=== PATIENT | male | born 1955 | race Caucasian/White ===

== ENCOUNTER 2019-11-04 19:11 | Inpatient (IN) | payer MEDICAID, OTHER, SELFPAY ==
[2019-11-04] MEDS ORDERED: LORazepam 2 MG/ML VIAL ONE ×2 (19:55→21:28)
[2019-11-04] MEDS ORDERED: ACETAMINOPHEN 650MG/RECT SUPP PR ONE (19:56)
[2019-11-04] MEDS ORDERED: NA CHLORIDE 0.9% 1,000 ML ONE (19:57)
--- NOTE | 2019-11-04 20:15 | RAD REPORT ---
EXAM DESCRIPTION: RAD - Chest Single View - 11/04/2019 7:59 pm CLINICAL HISTORY: FEVER Chest pain. COMPARISON: No comparisons FINDINGS: Portable technique limits examination quality. Prominent emphysema is seen. Mild bilateral interstitial lung opacities could indicate interstitial p neumonitis/ bronchitis. The heart is normal in size. No displaced fractures.
[2019-11-04 20:24] LABS: Absolute Lymphocytes (CBC) 0.7 K/uL (0.7-4.9); Basophils % 0.6 % (0-1.3); Hematocrit 33.9 % (39.6-49.0); Lymphocytes % 6.2 % (15.3-44.8); MPV 7.9 fL (7.6-11.3); RBC Red Blood Cell Count 3.31 M/uL (4.33-5.43)
[2019-11-04 20:25] LABS: Protime INR 1.03
[2019-11-04 20:39] LABS: ALT/SGPT 26 U/L (12-78); AST/SGOT 24 U/L (15-37); Albumin 2.9 g/dL (3.4-5.0); Alkaline Phosphatase 125 U/L (45-117); Amylase 40 U/L (25-115); BUN Blood Urea Nitrogen 14 mg/dL (7-18); Bicarbonate 31 mmol/L (21-32); Bilirubin Direct 0.4 mg/dL (0-0.2); Bilirubin Total 1.2 mg/dL (0.2-1.0); CKMB Creatine Kinase MB < 1.0 ng/mL (0.3-3.6); Creatine Phosphokinase 53 U/L (39-308); Glucose Level 105 mg/dL (74-106); Lipase 150 U/L (73-393); Potassium 3.7 mmol/L (3.5-5.1); Protein, Total 7.6 g/dL (6.4-8.2); Sodium Level 146 mmol/L (136-145); Troponin (Emerg Dept Use Only) < 0.02 ng/mL (0.0-0.045)
[2019-11-04 21:10] LABS: Urine Blood NEGATIVE (NEG); Urine Glucose NEGATIVE (NEG); Urine Protein 1+ (NEG); Urine pH 7.5 (5.0-7.0)
[2019-11-04] MEDS ORDERED: AZITHROMYCIN 500 MG INJ IVPB ONE (21:29)
[2019-11-04] MEDS ORDERED: CEFTRIAXONE/SWI 1gm 1 GM/10 ML SYR ONE (21:29)
[2019-11-04] MEDS ORDERED: NA CHLORIDE 0.9% 250 ML ONE (21:29)
--- NOTE | 2019-11-04 21:30 | ER ---
Nurse's Notes [facility] Name: Rober Sheridan Age: 63 yrs Sex: Male : 1955 Arrival Date: 11/04/2019 Time: 19:13 Bed 6 Private MD: Diagnosis: Pneumonia, unspecified organism;Alcohol dependence with withdrawal delirium Presentation: 11/03 19:18 Chief complaint: EMS states: came from [facility] complaining of fever T 104.6, we rr5 checked axilla T 102 F. patient was admitted in the facility for alcohol withdrawal, patient having tremors and pulling out his lines 2 point restraint applied, Ativan 2 mg/IV and Phenergan 12.5 mg/IV given. NS 1 liter given. Coronavirus screen: Client denies travel out of the [place] in the last 14 days. fever, shaking with chills, Client presents with at least one sign or symptom that may indicate coronavirus-19. Standard/surgical mask placed on the client. Provider contacted for isolation considerations. Ebola Screen: Patient negative for fever greater than or equal to 101.5 degrees Fahrenheit, and additional compatible Ebola Virus Disease symptoms Patient denies exposure to infectious person. Patient denies travel to an Ebola-affected area in the 21 days before illness onset. Initial Sepsis Screen: Does the patient meet any 2 criteria? RR > 20 per min. Temp <36.0*C (96.8*F)) or > 38.3*C (100.9*F). HR > 90 bpm. Does the patient have a suspected source of infection? Yes: Productive cough/pneumonia. Risk Assessment: Do you want to hurt yourself or someone else? Unable to obtain. Onset of symptoms was November 04, 2019. 19:18 Method Of Arrival: EMS: [facility] rr5 19:18 Acuity: PETER 2 rr5 Triage Assessment: 19:20 General: Behavior is uncooperative. rr5 Historical: - Allergies: 19:35 Tetanus Vaccines \T\ Toxoid; rr5 - PMHx: 19:27 Hypertension; Anxiety; hypokalemia; insomnia; nicotine dependence; acute pain due to rr5 trauma; iron deficiency; UTI; GERD; conjunctivitis; muscle weakness; - Immunization history:: Adult Immunizations unknown. - Social history:: Smoking status: Patient reports the use of cigarette tobacco products, Patient uses nicotine dependence. Screenin:20 Abuse screen: Denies threats or abuse. Denies injuries from another. Nutritional rr5 screening: No deficits noted. Tuberculosis screening: No symptoms or risk factors identified. Fall Risk Secondary diagnosis (15 points) impaired mobility, IV access (20 points). Mental Status- Overestimates/Forgets Limitations (15 pts.). Total Karimi Fall Scale indicates High Risk Score (45 or more points). Fall prevention measures have been instituted. Side Rails Up X 2 Placed Close to Nursing Station Frequent Obs/Assessments Occuring As available patient and family educated on Fall Prevention Program and Strategies. Assessment: 19:20 General: Appears in no apparent distress. ill, caregiver report fever and chills. Pain: rr5 Unable to use pain scale. Patient appears confused, to be grimacing. Neuro: Level of Consciousness is awake, Oriented to none tremors noted. Cardiovascular: Capillary refill < 3 seconds Patient's skin is warm and dry. Respiratory: Airway is patent Respiratory effort is even, unlabored, Respiratory pattern is tachypnea. GI: No signs and/or symptoms were reported involving the gastrointestinal system. : No signs and/or symptoms were reported regarding the genitourinary system. EENT: Eyes conjunctivitis right eye. Derm: Skin is fragile, is thin, Skin temperature is warm. Musculoskeletal: Capillary refill < 3 seconds. 20:36 Reassessment: spoke to rudy from [facility] patient chief complaint of fever T rr5 104.3 F chills and shaking started today. he was on quaratine for 2 weeks today is his first day release form quarantine. he was tested covid negative. patient is admitted in [facility] because of fall, shakiness and alcohol withdrawal. baseline A\T\O x1. 21:10 Reassessment: Patient appears in no apparent distress at this time. still having rr5 tremors, ED provider informed with order made and carried out. 21:37 Reassessment: daughter kayce [phone] informed, that the patient is for admission. rr5 23:06 Reassessment: Patient appears in no apparent distress at this time. No changes from rr5 previously documented assessment. 11/04 00:15 Reassessment: hospitalist with [employer] order to do blood work up at 0600H and to rr5 start NS 100 ml/Hr. 00:30 Reassessment: Patient appears in no apparent distress at this time. awaiting for covid rr5 result. diaper changed positive urine. 01:30 Reassessment: Patient appears in no apparent distress at this time. No changes from rr5 previously documented assessment. 02:14 Reassessment: covid negative for ICU admission. rr5 Vital Signs: 11/03 19:18 BP 166 / 106; Pulse 125; Resp 24; Temp 102.6; Pulse Ox 96% ; rr5 19:28 Weight 60 kg; rr5 20:53 BP 152 / 115; Pulse 120; Resp 22; Pulse Ox 97% ; rr5 21:33 BP 139 / 74; Pulse 128; Resp 24; Temp 100.8; Pulse Ox 97% ; rr5 23:07 BP 134 / 84; Pulse 120; Resp 22 S; Pulse Ox 98% on R/A; jd3 / 00:10 BP 123 / 91; Pulse 114; Resp 25; Temp 99.8; Pulse Ox 97% ; rr5 01:28 BP 147 / 94; Pulse 110; Resp 28; Temp 98.4; Pulse Ox 98% ; rr5 02:15 BP 151 / 95; Pulse 116; Resp 28; Pulse Ox 99% on R/A; rr5 03:15 BP 139 / 103; Pulse 111; Resp 24; Temp 98.9; Pulse Ox 99% ; rr5 ED Course: 11/03 19:13 Patient arrived in ED. am2 19:17 Brennon Rosa, RN is Primary Nurse. rr5 19:20 Maintain EMS IV. Dressing intact. Good blood return noted. Site clean \T\ dry. Gauge \T\ rr 5 site: G18 left AC. 19:23 Triage completed. rr5 19:30 Patient has correct armband on for positive identification. Placed in gown. Bed in low rr5 position. Call light in reach. Side rails up X2. dethistler operator on. Pulse ox on. NIBP on. 19:30 Arm band placed on right wrist. rr5 19:36 Aaron Brown MD is Attending Physician. tw4 19:50 EKG done, by ED staff, reviewed by Aaron Brown MD. rr5 20:00 Inserted saline lock: 20 gauge in right hand, using aseptic technique. rr5 20:00 First set of blood cultures drawn by me. rr5 20:10 Flu and/or RSV swab sent to lab. Strep swab sent to lab. covid. rr5 20:20 Second set of blood cultures drawn by me. rr5 20:25 Urine collected: straight cath specimen, clear. rr5 20:26 COVID-19 Sent. rr5 20:26 Flu Sent. rr5 21:28 Jimbo Lewis PA is Hospitalizing Provider. tw4 11/04 01:29 No provider procedures requiring assistance completed. Patient admitted, IV remains in rr5 place. intact, No redness/swelling at site. Restraints: 11/03 19:20 Non-Violent Restraint: Order obtained. Initiated on November 04, 2019 at 19:20 Unable to rr5 provide Restraint education. disoriented. Actions/Behavior observed: Confused/disoriented, has impaired decision making, repeated attempts to get up from bed/chair w/o assistance, has decreased level of consciousness, unable to follow instructions, repeated attempts to remove/tamper lines/tubes/IV med devices \T\ wound dressing, Alternative interventions: Ineffective. Clinical justification for use: line protection, patient safety, Mental status: confused, Cognition: Unable to assess. poor judgement, poor safety awareness, impulsive, poor attention/concentration, unable to follow commands, Circulation: Within defined parameters (based on Cardiovascular assessment) Skin integrity: Within defined parameters (based on Integumentary assessment) Signs of injury related to restraint: No injuries noted. Restraint status: Soft wrist restraint (Right) Continued. Soft wrist restraint (Left) Continued. 21:20 Non-Violent Restraint: Actions/Behavior observed: Confused/disoriented, has difficulty rr5 remembering/follow instructions, has impaired decision making, has decreased level of consciousness, unable to follow instructions, repeated attempts to remove/tamper lines/tubes/IV med devices \T\ wound dressing, Less restrictive alternatives attempted: decrease environmental stimuli, reoriented to location, repositioned, Alternative interventions: Ineffective. Clinical justification for use: line protection, patient safety, Mental status: confused, Cognition: Unable to assess. poor judgement, poor safety awareness, impulsive, poor attention/concentration, unable to follow commands, Circulation: Within defined parameters (based on Cardiovascular assessment) Skin integrity: Within defined parameters (based on Integumentary assessment) Signs of injury related to restraint: No injuries noted. Restraint status: Soft wrist restraint (Right) Continued. Soft wrist restraint (Left) Continued. 23:20 Non-Violent Restraint: Actions/Behavior observed: Confused/disoriented, has difficulty rr5 remembering/follow instructions, has impaired decision making, repeated attempts to get up from bed/chair w/o assistance, has decreased level of consciousness, unable to follow instructions, repeated attempts to remove/tamper lines/tubes/IV med devices \T\ wound dressing, Clinical justification for use: line protection, patient safety, Mental status: confused, Cognition: Unable to assess. poor judgement, poor safety awareness, impulsive, poor attention/concentration, unable to follow commands, Circulation: Within defined parameters (based on Cardiovascular assessment) Skin integrity: Within defined parameters (based on Integumentary assessment) Signs of injury related to restraint: No injuries noted. Range of Motion (ROM): performed. Restraint status: Soft wrist restraint (Right) Soft wrist restraint (Left) Continued. 11/04 01:00 Non-Violent Restraint: Actions/Behavior observed: Confused/disoriented, has difficulty rr5 remembering/follow instructions, has impaired decision making, repeated attempts to get up from bed/chair w/o assistance, has decreased level of consciousness, unable to follow instructions, repeated attempts to remove/tamper lines/tubes/IV med devices \T\ wound dressing, Clinical justification for use: line protection, patient safety, Mental status: confused, Cognition: Unable to assess. poor judgement, poor safety awareness, impulsive, poor attention/concentration, unable to follow commands, Circulation: Within defined parameters (based on Cardiovascular assessment) Skin integrity: Within defined parameters (based on Integumentary assessment) Signs of injury related to restraint: No injuries noted. Range of Motion (ROM): performed. Elimination/Hygiene: perineal care performed, diapers changed. Administered Medications: 11/03 20:00 Drug: NS 0.9% (30 ml/kg) 30 ml/kg Route: IV; Rate: bolus; Site: right hand; rr5 21:30 Follow up: Response: No adverse reaction; IV Status: Completed infusion; IV Intake: rr5 800ml 21:30 Follow up: 1 liter of NS given by EMS rr5 20:05 Drug: Ativan 1 mg Route: IVP; Site: right hand; rr5 21:00 Follow up: Response: No adverse reaction rr5 20:25 Drug: Tylenol Suppository 650 mg Route: IN; rr5 21:25 Follow up: Response: No adverse reaction; Temperature is decreased rr5 21:00 Drug: Rocephin 1 grams - ((cefTRIAXone) 1 grams, NS 0.9% 50 ml) Route: IVPB; Infused rr5 Over: 30 mins; Site: right hand; 21:30 Follow up: Response: No adverse reaction; IV Status: Completed infusion; IV Intake: [id number] 21:15 Drug: Ativan 1 mg Route: IVP; Site: right hand; rr5 22:15 Follow up: Response: No adverse reaction rr5 21:30 Dru mg of (AZITHromycin 500 mg, NS 0.9% 250 ml) Route: IVPB; Infused Over: 1 hrs; rr5 Site: right hand; 22:36 Follow up: Response: No adverse reaction; IV Status: Completed infusion; IV Intake: rr5 250ml 21:52 Drug: Thiamine 100 mg Route: IV; Rate: bolus; Site: right hand; rr5 22:00 Follow up: Response: No adverse reaction; IV Status: Completed infusion rr5 Intake: 21:30 IV: 50ml; Total: 50ml. rr5 21:30 IV: 800ml; Total: 850ml. rr5 22:36 IV: 250ml; Total: 1100ml. rr5 11/04 00:30 PO: 0ml; Total: 1100ml. rr5 Output: 00:30 Other: 1 (Diapers) ; Total: 0ml. rr5 Outcome: 11/03 21:29 Decision to Hospitalize by Provider. tw4 11/04 03:23 Admitted to ICU accompanied by nurse, via stretcher, room bed 10-, on monitor, with rr5 chart, Report called to renuka Condition: stable Instructed on unable to instruct admission 03:26 Patient left the ED. rr5 Signatures: Nicol Rivero Jonathon, RN RN jd3 Aaron Brown MD MD tw4 Brennon Rosa RN RN rr5 Corrections: (The following items were deleted from the chart) 00:31 11/03 23:06 Reassessment: No changes from previously documented assessment. Patient rr5 and/or family updated on plan of care and expected duration. Pain level reassessed. rosemarie
--- NOTE | 2019-11-04 21:30 | EDPHYS ---
Physician Documentation [facility] Name: Rober Sheridan Age: 63 yrs Sex: Male : 1955 Arrival Date: 11/04/2019 Time: 19:13 Bed 6 Private MD: ED Physician Aaron Brown HPI: 11/03 23:15 This 63 yrs old Male presents to ER via EMS with complaints of Fever. tw4 23:15 The patient reports fever, not measured (subjective). Onset: The symptoms/episode tw4 began/occurred today. Modifying factors: there are no obvious modifying factors. Associated signs and symptoms: Pertinent negatives:. Severity of symptoms: At their worst the symptoms were moderate in the emergency department the symptoms are unchanged. The patient has not experienced similar symptoms in the past. Historical: - Allergies: 19:35 Tetanus Vaccines \T\ Toxoid; rr5 - PMHx: 19:27 Hypertension; Anxiety; hypokalemia; insomnia; nicotine dependence; acute pain due to rr5 trauma; iron deficiency; UTI; GERD; conjunctivitis; muscle weakness; - Immunization history:: Adult Immunizations unknown. - Social history:: Smoking status: Patient reports the use of cigarette tobacco products, Patient uses nicotine dependence. ROS: 23:15 Cardiovascular: Negative for chest pain, palpitations, and edema, Respiratory: Negative tw4 for shortness of breath, cough, wheezing, and pleuritic chest pain, Abdomen/GI: Negative for abdominal pain, nausea, vomiting, diarrhea, and constipation, Back: Negative for injury and pain, MS/Extremity: Negative for injury and deformity, Skin: Negative for injury, rash, and discoloration, Neuro: Negative for headache, weakness, numbness, tingling, and seizure. 23:15 Constitutional: Positive for fever. Exam: 23:15 Head/Face: Normocephalic, atraumatic. Chest/axilla: Normal chest wall appearance and tw4 motion. Nontender with no deformity. No lesions are appreciated. Cardiovascular: Regular rate and rhythm with a normal S1 and S2. No gallops, murmurs, or rubs. Normal PMI, no JVD. No pulse deficits. Respiratory: Lungs have equal breath sounds bilaterally, clear to auscultation and percussion. No rales, rhonchi or wheezes noted. No increased work of breathing, no retractions or nasal flaring. Abdomen/GI: Soft, non-tender, with normal bowel sounds. No distension or tympany. No guarding or rebound. No evidence of tenderness throughout. Back: No spinal tenderness. No costovertebral tenderness. Full range of motion. MS/ Extremity: Pulses equal, no cyanosis. Neurovascular intact. Full, normal range of motion. 23:15 Constitutional: The patient appears agitated, in obvious distress, moderately distressed. 23:15 Neuro: Orientation: unable to test, medical condition, Mentation: is normal, Motor: tremors. Vital Signs: 19:18 BP 166 / 106; Pulse 125; Resp 24; Temp 102.6; Pulse Ox 96% ; rr5 19:28 Weight 60 kg; rr5 20:53 BP 152 / 115; Pulse 120; Resp 22; Pulse Ox 97% ; rr5 21:33 BP 139 / 74; Pulse 128; Resp 24; Temp 100.8; Pulse Ox 97% ; rr5 23:07 BP 134 / 84; Pulse 120; Resp 22 S; Pulse Ox 98% on R/A; jd3 11/04 00:10 BP 123 / 91; Pulse 114; Resp 25; Temp 99.8; Pulse Ox 97% ; rr5 01:28 BP 147 / 94; Pulse 110; Resp 28; Temp 98.4; Pulse Ox 98% ; rr5 02:15 BP 151 / 95; Pulse 116; Resp 28; Pulse Ox 99% on R/A; rr5 03:15 BP 139 / 103; Pulse 111; Resp 24; Temp 98.9; Pulse Ox 99% ; rr5 MDM: 11/03 19:48 Patient medically screened. tw4 23:19 Differential diagnosis: viral Infection, bacterial infection, URI. Data reviewed: vital tw4 signs, nurses notes, EMS record. Data interpreted: Pulse oximetry: Interpretation: normal. Counseling: I had a detailed discussion with the patient and/or guardian regarding: the historical points, exam findings, and any diagnostic results supporting the discharge/admit diagnosis, the presence of at least one elevated blood pressure reading (>120/80) during this emergency department visit, lab results. Special discussion: I discussed with the patient/guardian in detail that at this point there is no indication for admission to the hospital. It is understood, however, that if the symptoms persist or worsen the patient needs to return immediately for re-evaluation. 11/03 19:28 Order name: Amylase, Serum [facility] 11/03 19:28 Order name: Basic Metabolic Panel [facility] 11/03 19:28 Order name: Blood Culture Adult (2) [facility] 11/03 19:28 Order name: CBC with Diff [facility] 11/03 19:28 Order name: Ckmb [facility] 11/03 19:28 Order name: CPK [facility] 11/03 19:28 Order name: Lactate [facility] 11/03 19:28 Order name: LFT's [facility] 11/03 19:28 Order name: Lipase [facility] 11/03 19:28 Order name: Procalcitonin; Complete Time: 21:23 rr 11/03 21:24 Interpretation: Within normal limits: Procalcitonin 0.10. [facility] 11/03 19:28 Order name: Protime (+inr) [facility] 11/03 19:28 Order name: Ptt, Activated [facility] 11/03 19:28 Order name: Troponin (emerg Dept Use Only) [facility] 11/03 19:28 Order name: Urine Microscopic Only [facility] 11/03 19:47 Order name: COVID-19 [facility] 11/03 19:47 Order name: Flu [facility] 11/03 19:47 Order name: Strep [facility] 11/03 20:24 Order name: Glucose, Ancillary Testing; Complete Time: 20:28 EDMS 11/03 20:24 Order name: Urine Dipstick--Ancillary (enter results); Complete Time: 21:23 tt3 11/03 21:23 Interpretation: Normal except: UPH 7.5; U NIT POSITIVE; UPROT 1+. 4 11/03 20:31 Order name: CBC with Automated Diff [facility] 11/03 21:23 Interpretation: Normal except: WBC 11.1; RBC 3.31; HGB 11.2; HCT 33.9; MCV 102.4; LYM% tw4 6.2; AMANDA% 87.3; NEUT A 9.7. 11/03 20:31 Order name: Protime (+INR); Complete Time: 21:23 EDMS 11/03 21:24 Interpretation: Within normal limits: PT 12.1. 4 11/03 20:31 Order name: PTT, Activated Partial Thromb; Complete Time: 21:23 EDMS 11/03 21:24 Interpretation: Within normal limits: PTT 31.5. 11/03 20:33 Order name: Lactate; Complete Time: 21:23 PR 11/03 21:24 Interpretation: Within normal limits: LAC 1.7. 11/03 20:40 Order name: Basic Metabolic Panel; Complete Time: 21:23 EDPR 11/03 21:23 Interpretation: Normal except: NA 146. 11/03 20:40 Order name: Liver (Hepatic) Function; Complete Time: 21:23 EDMS 11/03 21:24 Interpretation: Normal except: ALK 125; BILIT 1.2; BILID 0.4; ALB 2.9; GLOB 4.7; A/G tw4 0.6. 11/03 20:40 Order name: Creatine Phosphokinase; Complete Time: 21:23 PR 11/03 21:24 Interpretation: CPK 53. [facility] 11/03 20:40 Order name: CKMB Creatine Kinase MB; Complete Time: 21:23 PR 11/03 21:25 Interpretation: Within normal limits: CKMB < 1.0. 11/03 20:40 Order name: Troponin (Emerg Dept Use Only); Complete Time: 21:23 PR 11/03 21:25 Interpretation: Within normal limits: TROPED < 0.02. 11/03 20:40 Order name: Amylase; Complete Time: 21:23 [facility] 11/03 21:25 Interpretation: Within normal limits: SAMPSON 40. 11/03 20:40 Order name: Lipase; Complete Time: 21:23 [facility] 11/03 21:25 Interpretation: Within normal limits: LIP 150. 11/03 19:28 Order name: Chest Single View XRAY 11/03 19:28 Order name: Accucheck; Complete Time: 20:27 11/03 19:28 Order name: Cardiac monitoring; Complete Time: 20:27 11/03 19:28 Order name: EKG - Nurse/Tech; Complete Time: 20:27 11/03 19:28 Order name: IV Saline Lock - Large Bore; Complete Time: 20:[address] [facility] 11/03 19:28 Order name: Labs collected and sent; Complete Time: 20:[address] [facility] 11/03 19:28 Order name: O2 Per Protocol; Complete Time: 20:27 5 11/03 19:28 Order name: O2 Sat Monitoring; Complete Time: 20:26 5 11/03 19:28 Order name: Urine Dipstick-Ancillary (obtain specimen); Complete Time: 20:26 5 11/03 19:37 Order name: Restraint:Non-Violent; Complete Time: 20:26 5 11/03 19:47 Order name: Droplet/Contact Precautions; Complete Time: 20:28 tw4 11/03 19:47 Order name: Labs collected and sent; Complete Time: 20:28 tw4 11/03 19:47 Order name: Notify Health Dept [phone]/ ; Complete Time: 20:28 tw4 11/03 19:47 Order name: O2 Per Protocol; Complete Time: 20:28 [facility] 11/03 20:16 Order name: RAD; Complete Time: 20:28 EDPR 11/03 21:28 Order name: Throat Culture [facility] 11/03 21:50 Order name: Urine Culture [facility] 11/03 22:00 Order name: CBC Smear Scan [facility] 11/04 01:51 Order name: SARS-COV-2 RT PCR EDMS Administered Medications: 20:00 Drug: NS 0.9% (30 ml/kg) 30 ml/kg Route: IV; Rate: bolus; Site: right hand; rr5 21:30 Follow up: Response: No adverse reaction; IV Status: Completed infusion; IV Intake: rr5 800ml 21:30 Follow up: 1 liter of NS given by EMS rr5 20:05 Drug: Ativan 1 mg Route: IVP; Site: right hand; rr5 21:00 Follow up: Response: No adverse reaction rr5 20:25 Drug: Tylenol Suppository 650 mg Route: UT; rr5 21:25 Follow up: Response: No adverse reaction; Temperature is decreased rr5 21:00 Drug: Rocephin 1 grams - ((cefTRIAXone) 1 grams, NS 0.9% 50 ml) Route: IVPB; Infused rr5 Over: 30 mins; Site: right hand; 21:30 Follow up: Response: No adverse reaction; IV Status: Completed infusion; IV Intake: 51noce5 21:15 Drug: Ativan 1 mg Route: IVP; Site: right hand; rr5 22:15 Follow up: Response: No adverse reaction rr5 21:30 Dru mg of (AZITHromycin 500 mg, NS 0.9% 250 ml) Route: IVPB; Infused Over: 1 hrs; rr5 Site: right hand; 22:36 Follow up: Response: No adverse reaction; IV Status: Completed infusion; IV Intake: rr5 250ml 21:52 Drug: Thiamine 100 mg Route: IV; Rate: bolus; Site: right hand; rr5 22:00 Follow up: Response: No adverse reaction; IV Status: Completed infusion rr5 Disposition: 11/04/19 21:29 Hospitalization ordered by Jimbo Lewis for Inpatient Admission. Preliminary diagnosis are Pneumonia, unspecified organism, Alcohol dependence with withdrawal delirium. - Bed requested for Intensive Care Unit. - Status is Inpatient Admission. rr5 - Condition is Stable. - Problem is new. - Symptoms have improved. Signatures: Dispatcher [employer] Aaron Dickey MD MD tw4 Brennon Rosa RN RN rr5 Corrections: (The following items were deleted from the chart) 20:28 19:47 Document PUI# ordered. tw4 rr5 11/04 03:26 08 21:29 Hospitalization Ordered by Jimbo CEJA for Inpatient Admission. rr5 Preliminary diagnosis is Pneumonia, unspecified organism; Alcohol dependence with withdrawal delirium. Bed requested for Intensive Care Unit. Status is Inpatient Admission. Condition is Stable. Problem is new. Symptoms have improved. tw4
[2019-11-04 21:49] LABS: Urine Amorphous Sediment 1+ /HPF (NONE SEEN); Urine Bacteria 20-50 /HPF (NONE SEEN); Urine Culture Reflex Order REFLEXED; Urine RBC <5 /HPF (NONE SEEN)
[2019-11-04] MEDS ORDERED: NA CHLORIDE 0.9% 100 ML IV ONE (21:54)
[2019-11-04] MEDS ORDERED: THIAMINE 200 MG/2 ML INJ ONE (21:54)
[2019-11-04 22:00] LABS: Urine White Blood Cell Casts OK
[2019-11-04 22:01] LABS: Blood Morphology Comment NOT SEEN (NOT SEEN); Platelet Estimate ADEQ
--- NOTE | 2019-11-04 23:33 | P.HP ---
Certification for Inpatient With expected LOS: >2 Midnights Patient will require the following post-hospital care: Long-Term Practitioner: I am a practitioner with admitting privileges, knowledge of patient current condition, hospital course, and medical plan of care. Services: Services provided to patient in accordance with Admission requirements found in Title 42 Section 412.3 of the Code of Federal Regulations <Jimbo Lewis - Last Filed: 11/04/19 23:27> Patient History Date of Service: 11/04/19 Reason for admission: UTI/tremors/PNA History of Present Illness: 63-year-old male with a past medical history of COPD, nicotine dependence, alcohol abuse, muscle weakness, anxiety, hypertension, urinary tract infection and anxiety brought to the emergency room by EMS from a [facility]. Patient was in the [facility] isolation unit for 2 weeks as precautions. Patient was sent there for alcohol withdrawal and rehabilitation. Per staff patient has not had an alcoholic drink in greater than 3 weeks. Today patient was noted to have a fever chills and shaking. His baseline is alert x1. Currently the patient is at his baseline. In the emergency room patient is agitated. Has moderate tremors. His latest vitals are 152/115 blood pressure, pulse rate of 120, respiratory rate of 22 and pulse ox of 97%. Lab work shows nitrites in the UA with bacteria but no leukocyte esterase and no increase in white cell counts. Patient was being treated with oral antibiotic at [facility] facility. Rest of blood work shows a white cell count of 11.1, procalcitonin normal of 0.10 and a normal lactic acid of 1.7. There is no indication that the patient has been drinking alcohol in the past 3 weeks. At the [facility] care facility patient's medications included Ativan at 0.5 b.i.d., thiamine, folic acid, melatonin 5 mg at bedtime, metoprolol 25 mg b.i.d., nicotine patch of 14 mg and pantoprazole. Patient will be placed in the ICU and further evaluated. Home medications list reviewed: Yes - Past Medical/Surgical History Diabetic: No -: Hypertension -: Anxiety -: Hypokalemia-chronic -: Insomnia -: COPD -: Urinary tract infection -: Pneumonia -: Nicotine dependent -: Iron deficient -: Right eye conjunctivitis -: Muscle weakness Past Surgical History: Reviewed- Non-Contributory Psychosocial/ Personal History: Resident of [facility] - Social History Smoking Status: Former smoker Smoking therapy provided: Yes Patient receptive to therapy: Yes Alcohol use: No CD- Drugs: No Caffeine use: No Place of Residence: Group Home ([facility]) <Jimbo Lewis - Last Filed: 11/04/19 23:27> Date of Service: 11/11/19 <Sonido Rodriguez - Last Filed: 11/11/19 13:48> Allergies Tetanus Vaccines and Toxoid Allergy (Verified 11/04/19 23:49) Itching/Hives/Rash Home Medications: Dextran 70/Hypromellose [Artificial Tears Drops] 1 drops OP BID 11/05/19 Folic Acid 1 mg PO DAILY 11/05/19 Melatonin 5 mg PO BEDTIME 11/05/19 Metoprolol Tartrate [Lopressor*] 25 mg PO BID 11/05/19 Nicotine [Nicotine Patch] 1 each TD DAILY 11/05/19 Pantoprazole [Protonix Tab*] 40 mg PO DAILY 11/05/19 Polymyxin B Sulf/Trimethoprim [Polymyxin B-Tmp Eye Drops] 1 gtt OP Q6HR 11/05/19 Potassium Chloride 20 meq PO DAILY 11/05/19 Thiamine HCl 100 mg PO DAILY 11/05/19 Carbidopa/Levodopa 25-100 [Sinemet 25-100*] 1 tab PO TID #90 tab 11/07/19 Cefdinir [Cefdinir*] 300 mg PO BID #20 cap 11/07/19 Donepezil HCl [Aricept] 5 mg PO BID #60 tablet 11/07/19 Ensure Enlive 237 ml PO BID #60 can 11/07/19 Alejandro [Alejandro*] 1 pkt PO BID #60 powd.pack 11/07/19 chlordiazePOXIDE HCl [Librium*] 5 mg PO Q8HP #20 cap 11/07/19 Review of Systems is unable to be obtained <Jimbo Lewis - Last Filed: 11/04/19 23:27> Physical Examination - Vital Signs Temperature: 102.6 F Blood Pressure: 152/115 Pulse: 120 Respirations: 22 Pulse Ox (%): 97 (RA) - Physical Exam General: Alert, Oriented x1 (At baseline) HEENT: Atraumatic, Normocephalic, Other (Right eye conjunctivitis) Neck: Supple, Other (Trachea midline) Respiratory: Clear to auscultation bilaterally, Normal air movement Cardiovascular: No edema, Normal pulses Capillary refill: <2 Seconds Gastrointestinal: Normal bowel sounds, Soft and benign Musculoskeletal: No swelling, No contractures, No erythema Integumentary: No significant lesion, No tenderness/swelling, No erythema Neurological: Normal tone, Other (Tremors), Abnormal gait - Studies Laboratory Data (last 24 hrs) 11/04/19 20:00: PT 12.1, INR 1.03, APTT 31.5 11/04/19 20:00: WBC 11.1 H, Hgb 11.2 L, Hct 33.9 L, Plt Count 348 11/04/19 20:00: Sodium 146 H, Potassium 3.7, BUN 14, Creatinine 0.80, Glucose 105, Total Bilirubin 1.2 H, AST 24, ALT 26, Alkaline Phosphatase 125 H, Amylase 40, Lipase 150 Microbiology Data (last 24 hrs): 11/04/19 20:10 Nasopharnyx Influenza Type A Antigen Screen - Final 11/04/19 20:10 Nasopharnyx Influenza Type B Antigen Screen - Final 11/04/19 20:10 Throat Group A Streptococcus Rapid Screen - Final <Jimbo Lewis - Last Filed: 11/04/19 23:27> - Studies Laboratory Data (last 24 hrs) 11/04/19 20:00: PT 12.1, INR 1.03, APTT 31.5 11/04/19 20:00: WBC 11.1 H, Hgb 11.2 L, Hct 33.9 L, Plt Count 348 11/04/19 20:00: Sodium 146 H, Potassium 3.7, BUN 14, Creatinine 0.80, Glucose 105, Total Bilirubin 1.2 H, AST 24, ALT 26, Alkaline Phosphatase 125 H, Amylase 40, Lipase 150 Microbiology Data (last 24 hrs): 11/04/19 20:10 Nasopharnyx Influenza Type A Antigen Screen - Final 11/04/19 20:10 Nasopharnyx Influenza Type B Antigen Screen - Final 11/04/19 20:10 Throat Group A Streptococcus Rapid Screen - Final <Sonido Rodriguez - Last Filed: 11/11/19 13:48> Assessment and Plan - Plan Impression: Pneumonia: Urinary tract infection: History of alcohol abuse: Right eye conjunctivitis: COPD/emphysema: Nicotine dependence with withdrawal: Plan: Pneumonia: Chest x-ray with bilateral interstitial opacities. Will start empiric antibiotic coverage with IV Rocephin at 1 g Q 24 hr and IV azithromycin at 500 mg daily. Continue O2 support as necessary. Monitor vitals. Urinary tract infection: Patient was being treated as an outpatient for a urinary tract infection. UA shows positive nitrites, negative leukocyte esterase, negative white cells and positive bacteria. Will continue antibiotics as above. History of alcohol abuse: Patient has a history of alcohol abuse. He was at [facility] for rehabilitation. Per staff patient has not had an alcoholic drink in over 3 weeks. Today he had a sudden onset of fever chills and tremors. Will continue with [facility] protocol. Right eye conjunctivitis: Patient is being treated for right eye conjunctivitis. Will resume all medication once verified. COPD/emphysema: Patient has a history of heavy smoking. Chest x-ray also shows advanced emphysema. Continue O2 support as needed. And resume home medications once verified. Will start on IV methylprednisolone at 40 mg q.6 hr. Monitor O2 saturations. Nicotine dependence with withdrawal: Patient is currently on a nicotine patch at 14 mg daily. Will continue. Patient's baseline mentation is alert and oriented x1. He is currently at his baseline. Discharge Plan: Group Home Plan to discharge in: Greater than 2 days - Advance Directives Does patient have a Living Will: No Does patient have a Durable POA for Healthcare: No - Code Status/Comfort Care Code Status Assessed: Yes Time Spent Managing Pts Care (In Minutes): 60 <Jimbo Lewis - Last Filed: 11/04/19 23:27> Date of Service: 11/04/19 Spoke with [facility]. Patient is been at their facility for 2 weeks. Patient was at a hospital being treated for an infection and alcohol withdrawals. Afterwards, patient was sent to [facility] for rehab were patient has been for 2 weeks quarantined. Patient's COVID-19 was negative. Patient has not been doing well over the last 24 hr. Patient has been febrile and weak. Patient not been acting like himself. Patient was sent into the emergency room for further evaluation. Patient had a temperature of a 102. This is a unlikely to be DTs which was initially what the emergency room physician was feeling. Patient is 3 weeks from drinking any alcohol so this is very unlikely. Most likely rigors from fever. Will evaluate for source of infection. Continue with broad-spectrum antibiotic coverage and ceballos culture. Hopefully will be able to identify cause over the next 24 hr. Physical exam: Neuro: Patient with tremors; Altered mentation; cachexia Assessment: 1. Septic shock 2. Tremor/rigors-Most likely Parkinson's disease 3. History of alcohol abuse 4. History of COPD 5. Fevers 6. Macrocytic anemia Plan: 1. IV hydration 2. IV antibiotics 3. Nebs, steroids, and antibiotics 4. Monitor H&H closely 5. Check B12, Folic acid, and thiamine levels 6. GI and DVT prophylaxis <Sonido Rodriguez - Last Filed: 11/11/19 13:48>
[2019-11-04] MEDS ORDERED: FLUMAZENIL 0.1 MG/ML (5 mL VIAL) IV PRN (23:57)
[2019-11-04] MEDS ORDERED: chlordiazePOXIDE HCl 5 MG CAP PO PRN (23:57)
[2019-11-04] MEDS ORDERED: LORazepam 2 MG/ML VIAL IV PRN (23:57)
[2019-11-05] MEDS: NA CHLORIDE 0.9% 1,000 ML IV SCH ×3 (01:00→22:33)
[2019-11-05 04:37] VITALS: BMI 18.6
[2019-11-05] MEDS: METHYLPREDNISOLONE 40 MG INJ IV SCH ×4 (05:52→17:02)
[2019-11-05] MEDS ORDERED: NA CHLORIDE 0.9% 1,000 ML ONE ×2 (06:00→22:05)
[2019-11-05] MEDS ORDERED: METHYLPREDNISOLONE 40 MG INJ ONE ×3 (06:00→17:13)
[2019-11-05 06:09] LABS: Absolute Lymphocytes (CBC) 0.3 K/uL (0.7-4.9); Basophils % 0.3 % (0-1.3); Hematocrit 31.2 % (39.6-49.0); Lymphocytes % 2.8 % (15.3-44.8); MPV 7.9 fL (7.6-11.3); RBC Red Blood Cell Count 3.07 M/uL (4.33-5.43)
[2019-11-05 06:49] LABS: ALT/SGPT 22 U/L (12-78); AST/SGOT 23 U/L (15-37); Albumin 2.5 g/dL (3.4-5.0); Alkaline Phosphatase 110 U/L (45-117); BUN Blood Urea Nitrogen 9 mg/dL (7-18); Bicarbonate 27 mmol/L (21-32); Bilirubin Total 1.2 mg/dL (0.2-1.0); Glucose Level 119 mg/dL (74-106); Magnesium 1.8 mg/dL (1.8-2.4); Phosphorus 2.4 mg/dL (2.5-4.9); Protein, Total 6.9 g/dL (6.4-8.2); Sodium Level 142 mmol/L (136-145)
[2019-11-05 06:51] LABS: Potassium 2.7 mmol/L (3.5-5.1)
[2019-11-05] MEDS ORDERED: POTASSIUM CL 60 MEQ in NA CHLORIDE 0.9% 1,000 ML IV ONE (07:30)
[2019-11-05] MEDS: CEFTRIAXONE/SWI 1gm 1 GM/10 ML SYR IV SCH (08:35)
[2019-11-05] MEDS: ENOXAPARIN 40 MG/0.4 ML SQ SCH (08:35)
[2019-11-05] MEDS ORDERED: CEFTRIAXONE/SWI 1gm 1 GM/10 ML SYR ONE (08:44)
[2019-11-05] MEDS ORDERED: ENOXAPARIN 40 MG/0.4 ML SQ ONE (08:45)
[2019-11-05] MEDS ORDERED: FOLIC ACID 1 MG, MULTIVITAMINS INJ 10 ML, THIAMINE HCL 100 MG in NA CHLORIDE 0.9% 1,000 ML IV SCH (09:00)
[2019-11-05] MEDS: AZITHROMYCIN IV 500 MG in NA CHLORIDE 0.9% 250 ML IVPB SCH (09:17)
[2019-11-05] MEDS: ACETAMINOPHEN 325 MG TABLET PO SCH ×3 (10:00→22:29)
--- NOTE | 2019-11-05 10:05 | P.PN ---
Subjective Date of Service: 11/05/19 Subjective: No new changes, No C/O voiced, Improving Patient doing okay when no new complaints. Review of Systems 10-point ROS is otherwise unremarkable Physical Examination - Vital Signs Temperature: 98.5 F Blood Pressure: 131/86 Pulse: 92 Respirations: 15 Pulse Ox (%): 100 - Physical Exam General: Alert, In no apparent distress Respiratory: Clear to auscultation bilaterally, Normal air movement Cardiovascular: Regular rate/rhythm, Normal S1 S2 Gastrointestinal: Normal bowel sounds, No tenderness Musculoskeletal: No tenderness Integumentary: No rashes Neurological: Other (Patient is tremors ) - Studies Laboratory Data (last 24 hrs) 11/04/19 20:00: PT 12.1, INR 1.03, APTT 31.5 11/04/19 20:00: WBC 11.1 H, Hgb 11.2 L, Hct 33.9 L, Plt Count 348 11/04/19 20:00: Sodium 146 H, Potassium 3.7, BUN 14, Creatinine 0.80, Glucose 105, Total Bilirubin 1.2 H, AST 24, ALT 26, Alkaline Phosphatase 125 H, Amylase 40, Lipase 150 Microbiology Data (last 24 hrs): 11/04/19 20:10 Nasopharnyx Influenza Type A Antigen Screen - Final 11/04/19 20:10 Nasopharnyx Influenza Type B Antigen Screen - Final 11/04/19 20:10 Throat Group A Streptococcus Rapid Screen - Final Medications List Reviewed: Yes Assessment & Plan - Problems (Diagnosis) (1) Septic shock Status: Acute (2) Fever Status: Acute (3) Rigors Status: Acute (4) History of COPD Status: Acute (5) Pneumonia Status: Acute (6) Parkinsons disease Status: Acute - Plan Plan: 1. Started Carbo levodopa 2. Continue antibiotic therapy 3. Monitor labs closely 4. Continue potassium supplement 5. GI and DVT prophylaxis Discharge Plan: Home Plan to discharge in: 48 Hours - Advance Directives Does patient have a Living Will: No Does patient have a Durable POA for Healthcare: No - Code Status/Comfort Care Code Status Assessed: Yes Code Status: Full Code Critical Care: No Time Spent Managing PTS Care (In Minutes): 30
[2019-11-05] MEDS: LORazepam 2 MG/ML VIAL IV PRN ×2 (11:23→15:54)
[2019-11-05] MEDS ORDERED: LORazepam 2 MG/ML VIAL ONE ×2 (11:33→16:04)
[2019-11-05] MEDS: TRIMETHOPRIM OP SCH ×2 (11:40→17:00)
[2019-11-05] MEDS: POLYMYXIN B SULF OP SCH ×2 (11:40→17:00)
[2019-11-05 12:58] LABS: BUN Blood Urea Nitrogen 8 mg/dL (7-18); Bicarbonate 27 mmol/L (21-32); Glucose Level 114 mg/dL (74-106); Potassium 3.4 mmol/L (3.5-5.1); Sodium Level 141 mmol/L (136-145)
[2019-11-05] MEDS ORDERED: POTASSIUM 25 MEQ EFFERV TAB PO ONE (18:00)
[2019-11-05] MEDS ORDERED: POTASSIUM 25 MEQ EFFERV TAB ONE (18:53)
[2019-11-05] MEDS: CARBIDOPA/LEVODOPA 25/100 TAB PO SCH ×2 (21:00→22:28)
[2019-11-05] MEDS: JUVEN PACKET PO SCH (21:00)
[2019-11-05] MEDS: ENSURE ENLIVE 237 ML CAN PO SCH (21:00)
[2019-11-05] MEDS ORDERED: ACETAMINOPHEN 325 MG TABLET ONE (22:04)
[2019-11-05] MEDS ORDERED: METOPROLOL TAR 25 MG TAB ONE (22:05)
[2019-11-05] MEDS ORDERED: LORAZEPAM 0.5 MG TABLET ONE (22:05)
[2019-11-05] MEDS: POLYVINYL ALCOHOL 1.4% 15 ML OPTH SCH (22:27)
[2019-11-05] MEDS: MELATONIN 5 MG TABLET PO SCH (22:27)
[2019-11-05] MEDS: METOPROLOL TAR 25 MG TAB PO SCH (22:29)
[2019-11-05] MEDS: LORAZEPAM 0.5 MG TABLET PO SCH (22:29)
[2019-11-06] MEDS: METHYLPREDNISOLONE 40 MG INJ IV SCH ×4 (00:45→17:30)
[2019-11-06] MEDS ORDERED: METHYLPREDNISOLONE 40 MG INJ ONE ×3 (00:46→11:20)
[2019-11-06] MEDS ORDERED: LORazepam 2 MG/ML VIAL ONE ×2 (03:19→12:57)
[2019-11-06] MEDS: ACETAMINOPHEN 325 MG TABLET PO SCH (04:00)
[2019-11-06] MEDS: POLYMYXIN B SULF OP SCH ×3 (06:00→11:07)
[2019-11-06] MEDS: TRIMETHOPRIM OP SCH ×3 (06:00→11:07)
[2019-11-06 06:34] LABS: BUN Blood Urea Nitrogen 18 mg/dL (7-18); Bicarbonate 30 mmol/L (21-32); Glucose Level 130 mg/dL (74-106); Magnesium 1.9 mg/dL (1.8-2.4); Potassium 3.3 mmol/L (3.5-5.1); Sodium Level 139 mmol/L (136-145)
[2019-11-06] MEDS ORDERED: POTASSIUM 25 MEQ EFFERV TAB PO ONE (07:22)
--- NOTE | 2019-11-06 07:30 | EKG ---
Test Date: 2019-11-04 Test Time: 19:39:58 Center Medical Director: JAEL MEASUREMENT RESULTS: Intervals: Rate: 130 MN: 134 QRSD: 72 QT: 300 QTc: 441 [place]: P: 87 MN: 134 QRS: 84 T: 54 INTERPRETIVE STATEMENTS: Sinus tachycardia with occasional premature ventricular complexes Anterior infarct, age undetermined ST & T wave abnormality, consider inferior ischemia Abnormal ECG No previous ECG available for comparison Electronically Signed On 11-06-19 07:28:44 CDT by Israel Menjivar
[2019-11-06] MEDS ORDERED: POTASSIUM 25 MEQ EFFERV TAB ONE (07:49)
[2019-11-06] MEDS ORDERED: FOLIC ACID 1 MG TABLET ONE (08:23)
[2019-11-06] MEDS ORDERED: LORAZEPAM 0.5 MG TABLET ONE (08:23)
[2019-11-06] MEDS ORDERED: METOPROLOL TAR 25 MG TAB ONE (08:24)
[2019-11-06] MEDS ORDERED: PANTOPRAZOLE 40MG TABLET PO ONE (08:24)
[2019-11-06] MEDS ORDERED: POTASSIUM CL SA 10 MEQ TAB PO ONE ×2 (08:24→09:01)
[2019-11-06] MEDS ORDERED: ENOXAPARIN 40 MG/0.4 ML SQ ONE (08:25)
[2019-11-06] MEDS ORDERED: THIAMINE HCL 100 MG TABLET ONE (08:25)
[2019-11-06] MEDS: PANTOPRAZOLE 40MG TABLET PO SCH (08:39)
[2019-11-06] MEDS: ENOXAPARIN 40 MG/0.4 ML SQ SCH (08:39)
[2019-11-06] MEDS: FOLIC ACID 1 MG TABLET PO SCH (08:40)
[2019-11-06] MEDS: LORAZEPAM 0.5 MG TABLET PO SCH (08:40)
[2019-11-06] MEDS: THIAMINE HCL 100 MG TABLET PO SCH (08:40)
[2019-11-06] MEDS: METOPROLOL TAR 25 MG TAB PO SCH ×2 (08:40→21:23)
[2019-11-06] MEDS: JUVEN PACKET PO SCH ×2 (08:40→21:24)
[2019-11-06] MEDS: ENSURE ENLIVE 237 ML CAN PO SCH ×2 (08:40→21:24)
[2019-11-06] MEDS: POTASSIUM CL SA 10 MEQ TAB PO SCH (08:40)
[2019-11-06] MEDS: CARBIDOPA/LEVODOPA 25/100 TAB PO SCH ×4 (08:41→21:23)
[2019-11-06] MEDS: NICOTINE 7 MG/PAT TD SCH (08:41)
[2019-11-06] MEDS: POLYVINYL ALCOHOL 1.4% 15 ML OPTH SCH ×2 (08:41→21:23)
[2019-11-06] MEDS: CEFTRIAXONE/SWI 1gm 1 GM/10 ML SYR IV SCH (08:47)
[2019-11-06] MEDS ORDERED: CEFTRIAXONE/SWI 1gm 1 GM/10 ML SYR ONE (08:55)
[2019-11-06] MEDS: AZITHROMYCIN IV 500 MG in NA CHLORIDE 0.9% 250 ML IVPB SCH (09:36)
[2019-11-06] MEDS: NA CHLORIDE 0.9% 1,000 ML IV SCH ×2 (11:11→17:32)
[2019-11-06] MEDS ORDERED: NA CHLORIDE 0.9% 1,000 ML ONE (11:20)
[2019-11-06] MEDS: LORazepam 2 MG/ML VIAL IV PRN (12:48)
[2019-11-06] MEDS: chlordiazePOXIDE HCl 5 MG CAP PO SCH (17:29)
[2019-11-06] MEDS: [UNRECOGNIZED DRUG - OTHER] OPTH SCH (17:31)
[2019-11-06] MEDS: MELATONIN 5 MG TABLET PO SCH (21:23)
[2019-11-07] MEDS: chlordiazePOXIDE HCl 5 MG CAP PO SCH ×2 (00:27→10:17)
[2019-11-07] MEDS: METHYLPREDNISOLONE 40 MG INJ IV SCH ×3 (00:27→11:38)
[2019-11-07] MEDS: [UNRECOGNIZED DRUG - OTHER] OPTH SCH ×3 (00:27→11:38)
[2019-11-07] MEDS: NA CHLORIDE 0.9% 1,000 ML IV SCH ×2 (05:14→13:00)
[2019-11-07] MEDS: ENSURE ENLIVE 237 ML CAN PO SCH (09:00)
[2019-11-07] MEDS ORDERED: AZITHROMYCIN IV 500 MG in NA CHLORIDE 0.9% 250 ML IVPB SCH (09:00)
[2019-11-07 09:02] VITALS: O2SAT 98
[2019-11-07] MEDS: PANTOPRAZOLE 40MG TABLET PO SCH (10:16)
[2019-11-07] MEDS: THIAMINE HCL 100 MG TABLET PO SCH (10:16)
[2019-11-07] MEDS: METOPROLOL TAR 25 MG TAB PO SCH (10:16)
[2019-11-07] MEDS: POTASSIUM CL SA 10 MEQ TAB PO SCH (10:16)
[2019-11-07] MEDS: FOLIC ACID 1 MG TABLET PO SCH (10:16)
[2019-11-07] MEDS: JUVEN PACKET PO SCH (10:16)
[2019-11-07] MEDS: CARBIDOPA/LEVODOPA 25/100 TAB PO SCH ×2 (10:17→13:57)
[2019-11-07] MEDS: ENOXAPARIN 40 MG/0.4 ML SQ SCH (10:17)
[2019-11-07] MEDS: NICOTINE 7 MG/PAT TD SCH (10:18)
[2019-11-07] MEDS: CEFTRIAXONE/SWI 1gm 1 GM/10 ML SYR IV SCH (10:19)
[2019-11-07] MEDS: POLYVINYL ALCOHOL 1.4% 15 ML OPTH SCH (10:19)
[2019-11-07] MEDS: HALOPERIDOL LACT 5 MG/ML INJ IM PRN ×2 (10:45→15:08)
--- NOTE | 2019-11-07 17:06 | CON ---
Reason For Consultation: Consultation called because of alcohol withdrawal and urinary tract infection. History Of Present Illness: Mr. Sheridan is a 64-year-old right-handed patient with multiple medical problems including COPD, alcohol abuse, generalized weakness, anxiety, hypertension, who came to [facility] on November 04, 2019 after he spent 2 weeks in a COVID Isolation Unit at [facility]. The patient reportedly had shaking with fevers and was not responding as he usually does. At [facility], blood pressures were elevated to 152/115, pulse up to 120, respiratory rate 22. He, however, was not febrile. His white count was normal at 11.1. Procalcitonin and lactic acid were also normal. He did receive benzodiazepines, thiamine, folic acid, was admitted to the ICU. His subsequent chest x-ray which show prominent emphysema, bilateral interstitial lung opacities, which likely may be pneumonitis or bronchitis. Since his hospitalization, he has been somewhat improved in terms of his responsiveness and ability to follow directions, although he is slow with his communication. It should be noted that he had significant tremors while in the COVID Isolation Unit and on hospitalization tremors were felt to be related to alcohol withdrawal. Dr. Rodriguez did give him Sinemet 25/100 four times daily with noted reduction in his tremors. The patient is also on multiple antibiotics including Rocephin and azithromycin. He is on Librium for alcohol withdrawal prophylaxis, flumazenil and Haldol as needed in addition to folic acid. 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 Allergies: TETANUS SHOT. Social History: Smokes cigarettes and drinks alcohol. Resides at [facility]. Family History: Noncontributory. Medications: At home cefdinir 300 mg twice daily, artificial Tears 1 drop twice daily, folic acid 1 mg daily, Ativan 0.5 mg twice daily, melatonin 5 mg at bedtime, metoprolol 25 mg twice daily, nicotine patch daily, Protonix 40 mg daily, polymyxin-trimethoprim eyedrops 1 in each eye every 6 hours as needed, potassium 20 mEq daily, thiamine 100 mg daily. Review of Systems: The patient is not able at this point to give a reliable review of systems. Physical Examination: Vital Signs: Blood pressure 108/68, pulse 77, respiratory rate 18, temperature 97, oxygen saturation 100% on room air. Weight 130 pounds, height 5 feet 10 inches, BMI 18.7. General: Mr. Sheridan is sitting beside his bed, eating his lunch. He does appear disheveled with some bruising in his arms, poorly kept in terms of dentition and hair as well. In general, he has good air movement. Abdomen: Soft. Extremities: No significant edema in the lower extremities or upper extremities. Neurologic: He is alert and oriented to person, situation. Follows simple commands without much difficulty, although he is slow to respond. Cranial nerves show no focal deficits. His motor examination has diffuse muscle weakness around 4/5 in upper lower extremities, more proximally than distally. Reflexes are depressed in the extremities. He has a stocking-glove loss to touch and temperature. He has a rest tremor noted in the arms as well. He does have a very slow gait, unsteady and wide-based. Laboratory Studies: Complete blood count now shows white blood cell 11.9, hemoglobin 10.4, platelets 297. INR 1.03. Chemistries shows potassium which was low at 2.7 on the 12th and now corrected to 4.1. Yesterday creatinine normal. Glucose ranged from 114-130. Calcium now 8.7, magnesium 1.9. TSH 1.713, T4 1.12. Liver function studies are normal except slightly elevated total bilirubin of 1.2. Urinalysis was positive for nitrites, bacteria, 1+ total protein. All cultures have been negative for blood, including aerobic and anaerobic along with throat and a clean-catch urine. Assessment: Mr. Sheridan is a 64-year-old patient with possible mix reasons for his encephalopathy and tremors. He does appear to have mild cognitive impairment and parkinsonian features which may raise possibility of dementia with Lewy body disease. He does have some metabolic derangements that have been corrected and has tremor did respond somewhat to Sinemet 25/100 four times daily. He is on multiple antibiotic medications, but all cultures at this point are negative and white blood cell count is very slightly elevated. Plan: Continue with alcohol withdrawal medications, although unlikely to be in alcohol withdrawal since his last alcoholic drink was more than 3 weeks ago. Continue with the Sinemet and at some point may have a DaTscan to further evaluate for idiopathic Parkinson disease. He should be enrolled in an alcohol and tobacco cessation program if possible. He may be discharged back to [facility] and follow up with his primary care physician at least within a month. If he is able to follow up with Dr. Massey's office also in a month and may have a DaTscan for Parkinson disease. SHAJI/WAQAS Voice ID: [id number] Report ID: [id number] NOÉ
[2019-11-11 13:53] VITALS: BP 131/86; TEMP 98.5
--- NOTE | 2019-11-11 13:54 | P.PN ---
Subjective Date of Service: 11/06/19 Patient stable. No new complaints. Review of Systems 10-point ROS is otherwise unremarkable Physical Examination - Vital Signs Temperature: 98.5 F Blood Pressure: 131/86 Pulse: 92 Respirations: 15 Pulse Ox (%): 100 - Physical Exam General: Alert, In no apparent distress, Oriented x3 Respiratory: Clear to auscultation bilaterally, Normal air movement Cardiovascular: Regular rate/rhythm, Normal S1 S2, No murmurs Gastrointestinal: Normal bowel sounds, Soft and benign, Non-distended, No tenderness Musculoskeletal: No clubbing, No swelling, No tenderness - Studies Medications List Reviewed: Yes Assessment & Plan - Problems (Diagnosis) (1) Septic shock Status: Acute (2) Fever Status: Acute (3) Rigors Status: Acute (4) History of COPD Status: Acute (5) Pneumonia Status: Acute (6) Parkinsons disease Status: Acute - Plan Plan: 1. Started Carbo levodopa; patient's tremors are improved. 2. Continue antibiotic therapy 3. Monitor labs closely 4. Continue potassium supplement 5. GI and DVT prophylaxis Discharge Plan: Home Plan to discharge in: 48 Hours - Advance Directives Does patient have a Living Will: No Does patient have a Durable POA for Healthcare: No - Code Status/Comfort Care Code Status: Full Code Critical Care: No Time Spent Managing PTS Care (In Minutes): 30
--- NOTE | 2019-11-11 13:57 | P.DS ---
Discharge Date: 11/07/19 Disposition: TRANSFER TO CARE HOME Discharge Condition: GOOD Reason for Admission: UTI/tremors/PNA - Problems (1) Septic shock Status: Acute (2) Fever Status: Acute (3) Rigors Status: Acute (4) History of COPD Status: Acute (5) Pneumonia Status: Acute (6) Parkinsons disease Status: Acute Brief History of Present Illness: Patient is a 64-year-old who was admitted with tremors. Patient was diagnosed with Parkinson's disease. Patient also had a urinary tract infection. Patient will be admitted for further evaluation. Hospital Course: Patient was started on carbidopa and tremors resolved. Patient is doing much better clinically. She will also be given Aricept. At this time patient is stable for discharge. Vital Signs/Physical Exam: Temp Pulse Resp BP Pulse Ox 98.5 F 92 H 15 131/86 100 11/11/19 13:54 11/11/19 13:54 11/11/19 13:54 11/11/19 13:54 11/11/19 13:54 General: Alert, In no apparent distress Laboratory Data at Discharge: WBC 11.9 K/uL (4.3-10.9) H 11/05/19 05:42 Hgb 10.4 g/dL (13.6-17.9) L 11/05/19 05:42 Hct 31.2 % (39.6-49.0) L 11/05/19 05:42 Plt Count 297 K/uL (152-406) 11/05/19 05:42 PT 12.1 SECONDS (9.5-12.5) 11/04/19 20:00 INR 1.03 11/04/19 20:00 APTT 30.1 SECONDS (24.3-36.9) 11/05/19 05:42 Sodium 139 mmol/L (136-145) 11/06/19 06:01 Potassium 4.1 mmol/L (3.5-5.1) 11/06/19 14:25 BUN 18 mg/dL (7-18) 11/06/19 06:01 Creatinine 0.40 mg/dL (0.55-1.3) L 11/06/19 06:01 Glucose 130 mg/dL (74-106) H 11/06/19 06:01 Phosphorus 2.4 mg/dL (2.5-4.9) L 11/05/19 05:42 Magnesium 1.9 mg/dL (1.8-2.4) 11/06/19 06:01 Total Bilirubin 1.2 mg/dL (0.2-1.0) H 11/05/19 05:42 AST 23 U/L (15-37) 11/05/19 05:42 ALT 22 U/L (12-78) 11/05/19 05:42 Alkaline Phosphatase 110 U/L (45-117) 11/05/19 05:42 Amylase 40 U/L (25-115) 11/04/19 20:00 Lipase 150 U/L (73-393) 11/04/19 20:00 Home Medications: Dextran 70/Hypromellose [Artificial Tears Drops] 1 drops OP BID 11/05/19 Folic Acid 1 mg PO DAILY 11/05/19 Melatonin 5 mg PO BEDTIME 11/05/19 Metoprolol Tartrate [Lopressor*] 25 mg PO BID 11/05/19 Nicotine [Nicotine Patch] 1 each TD DAILY 11/05/19 Pantoprazole [Protonix Tab*] 40 mg PO DAILY 11/05/19 Polymyxin B Sulf/Trimethoprim [Polymyxin B-Tmp Eye Drops] 1 gtt OP Q6HR 11/05/19 Potassium Chloride 20 meq PO DAILY 11/05/19 Thiamine HCl 100 mg PO DAILY 11/05/19 Carbidopa/Levodopa 25-100 [Sinemet 25-100*] 1 tab PO TID #90 tab 11/07/19 Cefdinir [Cefdinir*] 300 mg PO BID #20 cap 11/07/19 Donepezil HCl [Aricept] 5 mg PO BID #60 tablet 11/07/19 Ensure Enlive 237 ml PO BID #60 can 11/07/19 Alejandro [Alejandro*] 1 pkt PO BID #60 powd.pack 11/07/19 chlordiazePOXIDE HCl [Librium*] 5 mg PO Q8HP #20 cap 11/07/19 New Medications: Donepezil HCl [Aricept] 5 mg PO BID #60 tablet Cefdinir [Cefdinir*] 300 mg PO BID #20 cap Ensure Enlive 237 ml PO BID #60 can Alejandro [Alejandro*] 1 pkt PO BID #60 powd.pack chlordiazePOXIDE HCl [Librium*] 5 mg PO Q8HP #20 cap Carbidopa/Levodopa 25-100 [Sinemet 25-100*] 1 tab PO TID #90 tab Patient Discharge Instructions: OK TO DC IV AND DC TO [facility]. FOLLOW-UP WITH PRIMARY CARE PROVIDER IN 1-2 WEEKS. FOLLOW-UP WITH NEUROLOGY IN 1-2 WEEKS. RETURN TO THE ER IF symptoms worsen. CALL or TEXT DR. CASILLAS AT [phone] IF ANY QUESTIONS REGARDING HOSPITAL STAY. PLEASE CALL THE FLOOR AT [phone] IF ANY MEDICATION OR NURSING QUESTIONS. Diet: pureed diet w/ honey thick liquids Activity: Fall precautions Time spent managing pt's care (in minutes): 25
== END 2019-11-07 16:51 | DRG 871 ==
LOC: ER 19:11 → ERHOLD 22:53 → 2ND 11-06 16:34
PROVIDERS: ADMIT Hospitalist; ATTEND Hospitalist
DX: A41.9 Sepsis, unspecified organism (principal); R65.21 Severe sepsis with septic shock; J18.9 Pneumonia, unspecified organism; N39.0 Urinary tract infection, site not specified; F17.203 Nicotine dependence unspecified, with withdrawal; G93.40 Encephalopathy, unspecified; F10.239 Alcohol dependence with withdrawal, unspecified; I10 Essential (primary) hypertension; J43.9 Emphysema, unspecified; G20 Parkinson's disease; D53.9 Nutritional anemia, unspecified; K21.9 Gastro-esophageal reflux disease without esophagitis; H10.89 Other conjunctivitis; Z88.7 Allergy status to serum and vaccine; Z79.899 Other long term (current) drug therapy
CPT/HCPCS: 36415; 71045; 80048; 80053; 80076; 81003; 81015; 82150; 82550; 82553; 82947; 83605; 83690; 83735; 84100; 84132; 84145; 84439; 84443; 84484; 85025; 85610; 85730; 87040; 87070; 87077; 87081; 87086; 87088; 87186; 87804; 93005; 94760; 96365; 96367; 96375; 99285; J0456; J0696; J1630; J1650; J2920; J3411; J3480; J7030; J7050; Q0161; U0003

== ENCOUNTER 2024-05-16 06:01 | Inpatient (IN) | payer OTHER ==
[2024-05-16] MEDS ORDERED: ACETAMINOPHEN 500 MG TAB ONE (06:31)
[2024-05-16] MEDS ORDERED: VANCOMYCIN 1 GM/VIAL ONE (06:31)
[2024-05-16] MEDS ORDERED: ONDANSETRON 4 MG/2 ML VIAL ONE (06:31)
[2024-05-16] MEDS ORDERED: NA CHLORIDE 0.9% 100 ML ONE (06:32)
[2024-05-16] MEDS ORDERED: CEFEPIME 1 GM/VIAL ONE (06:32)
[2024-05-16] MEDS ORDERED: IBUPROFEN 400 MG TAB ONE (06:32)
[2024-05-16] MEDS ORDERED: NA CHLORIDE 0.9% 500 ML ONE (06:32)
[2024-05-16] MEDS ORDERED: NA CHLORIDE 0.9% 2,000 ML ONE (06:33)
[2024-05-16 07:05] LABS: Absolute Lymphocytes (CBC) 0.6 K/uL (0.7-4.9); Absolute Monocytes 0.5 K/uL (0.1-1.3); Absolute Neutrophil 4.9 K/uL (1.8-8.0); Basophils % 0.6 % (0-1.3); Hematocrit 37.3 % (39.6-49.0); Lymphocytes % 9.2 % (15.3-44.8); MCH 32.2 pg (27.0-35.0); MCHC 34.9 g/dL (32.0-36.0); MCV 92.3 fL (80-100); MPV 8.3 fL (7.6-11.3); Monocytes % 8.6 % (3.3-12.3); Neutrophils % 81.6 % (41.7-73.7); Platelets 230 thou/uL (152-406); RBC Red Blood Cell Count 4.04 M/uL (4.33-5.43); Red Cell Distribution Width 14.4 % (12.1-15.2)
[2024-05-16 07:14] LABS: PT Prothrombin Time 13.9 SECONDS (9.4-12.5); PTT, Activated Partial Thromb 29.9 SECONDS (24.3-36.9); Protime INR 1.33
[2024-05-16 07:28] LABS: Influenza A Ag Negative; Influenza B Ag Negative; SARS-CoV-2 Antigen Rapid Res Negative (Negative)
[2024-05-16 07:29] LABS: Albumin 3.1 g/dL (3.4-5.0); Albumin/Globulin Ratio 0.8 (1.1-1.8); Anion Gap 11.6 mEq/L (5.0-15.0); Bilirubin Total 0.9 mg/dL (0.2-1.0); Potassium 3.6 mEq/L (3.5-5.1); Protein, Total 7.1 g/dL (6.4-8.2); Troponin High Sensitivity 14.2 pg/mL (<58.9)
[2024-05-16 07:33] LABS: C-Reactive Protein 62.3 mg/L (<3.00); Thyroid Stimulating Hormone 1.42 uIU/mL (0.358-3.740)
--- NOTE | 2024-05-16 07:41 | EDPHYS ---
Physician Documentation [facility] Name: Rober Sheridan Age: 68 yrs Sex: Male : 1955 Arrival Date: 05/16/2024 Time: 06:01 Bed 27 Private MD: ED Physician Chase Mcdaniels HPI: 05/16 07:13 This 68 yrs old Male presents to ER via EMS with complaints of Flu Symptoms. sp4 07:13 68-year-old male with past medical history of anxiety, conjunctivitis, GERD, sp4 hypertension, hyper kalemia, dementia, insomnia presents from [facility] with persistent fever for the past 2 weeks. Today patient was noted to be somewhat altered. [facility] report states patient had altered mental status prompting EMS call. Historical: - Allergies: 06:08 Tetanus Vaccines \T\ Toxoid; al5 - PMHx: 06:08 acute pain due to trauma; Anxiety; conjunctivitis; GERD; Hypertension; Hypokalemia; al5 insomnia; iron deficiency; MUSCLE WEAKNESS; nicotine dependence; UTI; Dementia; - PSHx: 06:08 None; al5 - Immunization history:: Adult Immunizations up to date. - Infectious Disease History:: Denies. - Social history:: Smoking status: unknown. - Family history:: not pertinent. ROS: 07:13 Constitutional: Positive fever, positive confusion sp4 07:13 All other systems are negative, Exam: 07:13 Constitutional: Physically debilitated male, nontoxic-appearing, ill-appearing sp4 Head/Face: Normocephalic, atraumatic. Eyes: Pupils equal round and reactive to light, extra-ocular motions intact. Lids and lashes normal. Conjunctiva and sclera are not injected. Cornea within normal limits. Periorbital areas with no swelling, redness, or edema. ENT: Nares patent. No nasal discharge, no septal abnormalities noted. Tympanic membranes are normal and external auditory canals are clear. Oropharynx with no redness, swelling, or masses, exudates, or evidence of obstruction, uvula midline. Mucous membranes moist. Neck: Trachea midline, no thyromegaly or masses palpated, and no cervical lymphadenopathy. Supple, full range of motion without nuchal rigidity, or vertebral point tenderness. Chest/axilla: Normal chest wall appearance and motion. Nontender with no deformity. No lesions are appreciated. Cardiovascular: Regular rate and rhythm with a normal S1 and S2. No gallops, murmurs, or rubs. Normal PMI, no JVD. No pulse deficits. Respiratory: Lungs have equal breath sounds bilaterally, clear to auscultation and percussion. No rales, rhonchi or wheezes noted. No increased work of breathing, no retractions or nasal flaring. Abdomen/GI: Soft, with normal bowel sounds. No distension or tympany. No guarding or rebound. No evidence of tenderness throughout. Back: No spinal tenderness. No costovertebral tenderness. Skin: Warm, dry with normal turgor. Normal color with no rashes, no lesions, and no evidence of cellulitis. MS/ Extremity: Pulses equal, no cyanosis. Neurovascular intact. Full, normal range of motion. Neuro: Awake and alert, GCS 15, oriented to person, place, time, and situation. Cranial nerves II-XII grossly intact. Motor strength 5/5 in all extremities. Sensory grossly intact. Psych: Awake, alert, with orientation to person, place and time. Behavior, mood, and affect are within normal limits 07:40 ECG was reviewed by the Attending Physician. richelle Vital Signs: 06:05 BP 128 / 65; Pulse 89; Resp 16; Temp 101.2; Pulse Ox 92% on R/A; Weight 74.5 kg; Height al5 6 ft. 0 in. ; Pain 0/10; 08:39 BP 126 / 63; Pulse 75; Resp 18; Temp 98.8(O); Pulse Ox 100% on Nebulizer Mask; aa5 10:33 BP 115 / 61; Pulse 95; Resp 15; Pulse Ox 97% ; jl7 14:00 BP 122 / 62; Pulse 79; Resp 15; Pulse Ox 97% ; jl7 06:05 Body Mass Index 22.28 (74.50 kg, 182.88 cm) al5 06:05 Pain Scale: Adult al5 [place] Coma Score: 07:13 Eye Response: spontaneous(4). Motor Response: obeys commands(6). Verbal Response: sp4 oriented(5). Total: 15. MDM: 06:28 Medical Screening Exam initiated sp4 07:21 Differential diagnosis: viral Infection, bacterial infection, gastroenteritis, sp4 meningitis. Data reviewed: vital signs, nurses notes, radiologic studies, CT scan. Consideration of Admission/Observation Escalation of care including admission/observation considered. Transition of care: After a detail discussion of the patient's case, care is transferred to Chase Mcdaniels MD. 07:41 Post IV fluid administration reassessment for Sepsis: Client prescribed 30 mL/kg IVF. richelle Sepsis focused reassessment complete. Counseling: I had a detailed discussion with the patient and/or guardian regarding the historical points, exam findings, and any diagnostic results supporting the discharge/admit diagnosis, lab results, radiology results, the need for further work-up and treatment in the hospital. 05/16 06:09 Order name: Blood Culture Adult (2) sp4 05/16 06:09 Order name: CBC with Diff; Complete Time: 07:37 sp4 05/16 06:09 Order name: CMP; Complete Time: 07:37 sp4 05/16 06:09 Order name: Lactate w/ 2H reflex if indic.; Complete Time: 07:37 sp4 05/16 06:09 Order name: Protime (+inr); Complete Time: 07:37 sp4 05/16 06:09 Order name: Ptt, Activated; Complete Time: 07:37 sp4 05/16 06:09 Order name: Urinalysis w/ reflexes sp4 05/16 06:09 Order name: ABG sp4 05/16 06:10 Order name: Troponin High Sensitivity; Complete Time: 07:37 sp4 05/16 06:10 Order name: BNP; Complete Time: 07:37 sp4 05/16 06:11 Order name: CRP; Complete Time: 07:37 sp4 05/16 06:11 Order name: TSH; Complete Time: 07:37 sp4 05/16 06:11 Order name: T4 Free; Complete Time: 07:37 sp4 05/16 07:04 Order name: COVID-19 Ag + Flu A+B Ag; Complete Time: 07:37 EDMS 05/16 13:11 Order name: Basic Metabolic Panel EDMS 05/16 13:11 Order name: Basic Metabolic Panel EDMS 05/16 13:11 Order name: CBC with Automated Diff EDMS 05/16 13:11 Order name: CBC with Automated Diff EDMS 05/16 13:11 Order name: Lipid Profile EDMS 05/16 13:11 Order name: Lipid Profile EDMS 05/16 13:11 Order name: Sputum Culture [facility] 05/16 06:10 Order name: CT Head Brain wo Cont [facility] 05/16 06:10 Order name: CT Chest, Abdomen, Pelvis - W/Contrast [facility] 05/16 07:44 Order name: Chest Single View XRAY [facility] 05/16 13:11 Order name: Chest Pa And Lat (2 Views) [facility] 05/16 13:11 Order name: Chest Pa And Lat (2 Views) [facility] 05/16 06:09 Order name: Cardiac monitoring; Complete Time: 06:56 [facility] 05/16 06:09 Order name: EKG - Nurse/Tech; Complete Time: 06:56 [facility] 05/16 06:09 Order name: IV Saline Lock - Large Bore; Complete Time: 06:54 [facility] 05/16 06:09 Order name: Labs collected and sent; Complete Time: 06:54 [facility] 05/16 06:09 Order name: O2 Per Protocol; Complete Time: 06:56 [facility] 05/16 06:09 Order name: O2 Sat Monitoring; Complete Time: 06:56 [facility] 05/16 06:09 Order name: Vital Signs; Complete Time: 06:56 4 EC:40 Rate is 80 beats/min. Rhythm is regular. QRS [place] is Normal. DE interval is normal. QRS richelle interval is normal. QT interval is normal. No Q waves. T waves are Normal. ST Segment is depressed in leads I, II, III, aVL, aVF, V5, V6. Clinical impression: NSR w/ Non-specific ST/T Changes. Interpreted by me. Reviewed by me. Administered Medications: 06:55 Drug: Ondansetron IVP 4 mg IVP once; over 2 minutes Route: IVP; Site: right forearm; al5 07:10 Follow up: Response: No adverse reaction ko1 06:56 Drug: Acetaminophen PO 1000 mg PO once Route: PO; al5 07:24 Follow up: Response: No adverse reaction ko1 06:56 Drug: Ibuprofen PO 800 mg PO once Route: PO; al5 07:24 Follow up: Response: No adverse reaction ko1 06:56 Drug: NS 0.9% IV (30 ml/kg) 30 ml/kg IV at bolus once; Sepsis Protocol; to be given as al5 a bolus over 90 minutes Route: IV; Rate: bolus; Site: right forearm; 15:46 Follow up: Response: No adverse reaction; IV Status: Completed infusion; IV Intake: jl7 2235ml 06:56 Drug: Cefepime IVPB 2 grams IVPB at 200 ml/hr once over 30 mins; (mix in NS 100 mL) al5 Route: IVPB; Rate: 200 ml/hr; Infused Over: 30 mins; Site: right forearm; 07:24 Follow up: Response: No adverse reaction; IV Status: Completed infusion; IV Intake: ko1 100ml 07:24 Drug: vancoMYCIN IVPB 2 grams IVPB at calculated rate once Route: IVPB; Rate: ko1 calculated rate; Site: right wrist; 08:38 Follow up: Response: No adverse reaction aa5 08:38 Follow up: IV Status: Completed infusion kb3 08:37 Drug: Aspirin PO Chewable Tablet 162 mg PO once Route: PO; aa5 10:40 Follow up: Response: No adverse reaction kb3 08:38 Drug: MethylPrednisoLONE IVP 125 mg IVP once Route: IVP; Site: right wrist; aa5 10:42 Follow up: Response: No adverse reaction kb3 08:38 Drug: Levalbuterol Inhalation 2.5 mg Inhalation once Route: Inhalation; aa5 10:41 Follow up: Response: No adverse reaction; Wheezing diminished kb3 08:38 Drug: Ipratropium Inhalation Aerosol 0.5 mg Inhalation once Route: Inhalation; aa5 10:41 Follow up: Response: No adverse reaction; Wheezing diminished kb3 08:38 Drug: Famotidine IVP 20 mg IVP once; dilute with 10 mL 0.9% NaCl; give over 2 minutes aa5 Route: IVP; Site: right wrist; 10:40 Follow up: Response: No adverse reaction; Pain is decreased kb3 Disposition Summary: 05/16/24 07:40 Hospitalization Ordered Notes: Hospitalization Status: Inpatient Admission richelle Provider: Flori Leo cha Location: Telemetry/MedSurg (Inpatient) richelle Condition: Fair richelle Problem: new richelle Symptoms: have improved richelle Bed/Room Type: Standard richelle Room Assignment: 211(05/16/24 15:24) ss Diagnosis - Fever, unspecified richelle - Tobacco abuse counseling richelle - Tobacco use richelle - Pneumonia due to other specified bacteria richelle Forms: - Medication Reconciliation Form richelle - SBAR form richelle - Leadership Thank You Letter richelle Signatures: Dispatcher [employer] EDMS Chase Mcdaniels MD MD cha Calderon, Audri, RN RN aa5 Carolina Sanchez, RN RN ss Elizabeth Irby RN RN ko1 Hilario Merlos MD MD sp4 Nicol Javier RN RN al5 Ramila Petersen RN jl7 Milagro Harris RN kb3 Corrections: (The following items were deleted from the chart) 06:09 06:09 BLOOD CULTURE*+BA.LAB.BRZ ordered. EDMS EDMS 06:09 06:09 CBC+H.LAB.BRZ ordered. EDMS EDMS 06:09 06:09 COMPREHENSIVE METABOLIC PANEL+C.LAB.BRZ ordered. EDMS EDMS 06:09 06:09 LACTATE+C.LAB.BRZ ordered. EDMS EDMS 06:09 06:09 PROTIME (+INR)+COAG.LAB.BRZ ordered. EDMS EDMS 06:10 06:09 PTT, ACTIVATED+COAG.LAB.BRZ ordered. EDMS EDMS 06:10 06:09 Urinalysis+U.LAB.BRZ ordered. EDMS EDMS 06:10 06:10 Arterial Blood Gas+RC.LAB.BRZ ordered. EDMS EDMS 06:11 06:11 C-REACTIVE PROTEIN+C.LAB.BRZ ordered. EDMS EDMS 06:11 06:11 THYROID STIMULAT HORMONE+C.LAB.BRZ ordered. EDMS EDMS 06:11 06:11 T4 FREE+C.LAB.BRZ ordered. EDMS EDMS 06:56 06:09 Accucheck ordered. sp4 al5 07:03 06:10 Influenza Screen (A \T\ B)+BA.LAB.BRZ ordered. EDMS EDMS 07:04 06:10 SARS-COV-2 Antigen Rapid+I.LAB.BRZ ordered. EDMS EDMS 15:24 07:40 richelle
--- NOTE | 2024-05-16 07:41 | ER ---
Nurse's Notes [facility] Name: Rober Sheridan Age: 68 yrs Sex: Male : 1955 Arrival Date: 05/16/2024 Time: 06:01 Bed 27 Private MD: Diagnosis: Fever, unspecified;Tobacco abuse counseling;Tobacco use;Pneumonia due to other specified bacteria Presentation: 05/16 06:05 Chief complaint: Patient states: from [facility] for n/v/d, fever x1 week. al5 Coronavirus screen: diarrhea, nausea, vomiting. Ebola Screen: No symptoms or risks identified at this time. Initial Sepsis Screen: Does the patient meet any 2 criteria? No. Patient's initial sepsis screen is negative. Does the patient have a suspected source of infection? No. Patient's initial sepsis screen is negative. Risk Assessment: Do you want to hurt yourself or someone else? Patient reports no desire to harm self or others. Onset of symptoms was May 16, 2024. 06:05 Method Of Arrival: EMS: [facility] al5 06:05 Acuity: PETER 3 al5 06:05 Note last tylenol given at 2100. al5 06:05 Care prior to arrival: Glucose check: 120. al5 Triage Assessment: 06:08 General: Appears in no apparent distress. comfortable, ill, slender, well groomed, al5 Behavior is calm, cooperative. Pain: Denies pain. EENT: No signs and/or symptoms were reported regarding the EENT system. Neuro: Level of Consciousness is awake, alert, obeys commands, Oriented to person, place, time, situation, hx of dementia. Cardiovascular: Capillary refill < 3 seconds Patient's skin is warm and dry. Respiratory: Airway is patent Respiratory effort is even, unlabored, Respiratory pattern is regular, symmetrical. GI: Abdomen is flat, non-distended, Reports diarrhea, nausea, vomiting. : No signs and/or symptoms were reported regarding the genitourinary system. Derm: Skin is intact, Skin is pink, warm \T\ dry. normal. Musculoskeletal: No signs and/or symptoms reported regarding the musculoskeletal system. Historical: - Allergies: 06:08 Tetanus Vaccines \T\ Toxoid; al5 - PMHx: 06:08 acute pain due to trauma; Anxiety; conjunctivitis; GERD; Hypertension; Hypokalemia; al5 insomnia; iron deficiency; MUSCLE WEAKNESS; nicotine dependence; UTI; Dementia; - PSHx: 06:08 None; al5 - Immunization history:: Adult Immunizations up to date. - Infectious Disease History:: Denies. - Social history:: Smoking status: unknown. - Family history:: not pertinent. Screenin:13 [facility] ED Fall Risk Assessment (Adult) History of falling in the last 3 months, al5 including since admission No falls in past 3 months (0 pts) Confusion or Disorientation Yes (5 pts) Intoxicated or Sedated No (0 pts) Impaired Gait No (0 pts) Mobility Assist Device Used No (0 pt) Altered Elimination No (0 pt) Score/Fall Risk Level 3 or more points = High Risk Oriented to surroundings, Maintained a safe environment, Hourly rounding (assess needs \T\ fall precautionary measures) done. Abuse screen: Denies threats or abuse. Denies injuries from another. Nutritional screening: No deficits noted. Tuberculosis screening: No symptoms or risk factors identified. Assessment: 06:12 Reassessment: see triage assessment. al5 08:38 Reassessment: Patient is alert, oriented x 3, equal unlabored respirations, skin aa5 warm/dry/pink. Vital Signs: 06:05 BP 128 / 65; Pulse 89; Resp 16; Temp 101.2; Pulse Ox 92% on R/A; Weight 74.5 kg; Height al5 6 ft. 0 in. ; Pain 0/10; 08:39 BP 126 / 63; Pulse 75; Resp 18; Temp 98.8(O); Pulse Ox 100% on Nebulizer Mask; aa5 10:33 BP 115 / 61; Pulse 95; Resp 15; Pulse Ox 97% ; jl7 14:00 BP 122 / 62; Pulse 79; Resp 15; Pulse Ox 97% ; jl7 06:05 Body Mass Index 22.28 (74.50 kg, 182.88 cm) al5 06:05 Pain Scale: Adult al5 [place] Coma Score: 07:13 Eye Response: spontaneous(4). Motor Response: obeys commands(6). Verbal Response: sp4 oriented(5). Total: 15. ED Course: 06:04 Patient arrived in ED. br2 06:04 Langhorst, Nicol, RN is Primary Nurse. al5 06:05 Hilario Merlos MD is Attending Physician. al5 06:08 Triage completed. al5 06:11 Arm band placed on right wrist. Patient placed in the treatment room, on a stretcher, al5 on pulse oximetry. 06:13 Patient has correct armband on for positive identification. Bed in low position. Call al5 light in reach. Side rails up X2. Provided Education on: plan of care. 06:13 No provider procedures requiring assistance completed. al5 06:23 First set of blood cultures drawn by me. oe 06:45 Second set of blood cultures drawn by me. oe 06:52 Inserted saline lock: 22 gauge in right wrist, using aseptic technique. Blood oe collected. Flushed with 10 mL NS. 06:53 T4 Free Sent. oe 06:53 TSH Sent. oe 06:53 CRP Sent. oe 06:53 BNP Sent. oe 06:53 Troponin High Sensitivity Sent. oe 07:06 Attending Physician role handed off by Hilario Merlos MD richelle 07:06 Chase Mcdaniels MD is Attending Physician. richelle 07:11 EKG done, by ED staff, reviewed by Chase Mcdaniels MD. oe 07:39 Flori Leo MD is Hospitalizing Provider. richelle 07:45 CT Head Brain wo Cont In Process Unspecified. EDMS 07:45 CT Chest, Abdomen, Pelvis - W/Contrast In Process Unspecified. EDMS 08:09 Chest Single View XRAY In Process Unspecified. EDMS 15:45 Patient admitted, IV remains in place. intact, No redness/swelling at site. jl7 Administered Medications: 06:55 Drug: Ondansetron IVP 4 mg IVP once; over 2 minutes Route: IVP; Site: right forearm; al5 07:10 Follow up: Response: No adverse reaction ko1 06:56 Drug: Acetaminophen PO 1000 mg PO once Route: PO; al5 07:24 Follow up: Response: No adverse reaction ko1 06:56 Drug: Ibuprofen PO 800 mg PO once Route: PO; al5 07:24 Follow up: Response: No adverse reaction ko1 06:56 Drug: NS 0.9% IV (30 ml/kg) 30 ml/kg IV at bolus once; Sepsis Protocol; to be given as al5 a bolus over 90 minutes Route: IV; Rate: bolus; Site: right forearm; 15:46 Follow up: Response: No adverse reaction; IV Status: Completed infusion; IV Intake: jl7 2235ml 06:56 Drug: Cefepime IVPB 2 grams IVPB at 200 ml/hr once over 30 mins; (mix in NS 100 mL) al5 Route: IVPB; Rate: 200 ml/hr; Infused Over: 30 mins; Site: right forearm; 07:24 Follow up: Response: No adverse reaction; IV Status: Completed infusion; IV Intake: ko1 100ml 07:24 Drug: vancoMYCIN IVPB 2 grams IVPB at calculated rate once Route: IVPB; Rate: ko1 calculated rate; Site: right wrist; 08:38 Follow up: Response: No adverse reaction aa5 08:38 Follow up: IV Status: Completed infusion kb3 08:37 Drug: Aspirin PO Chewable Tablet 162 mg PO once Route: PO; aa5 10:40 Follow up: Response: No adverse reaction kb3 08:38 Drug: MethylPrednisoLONE IVP 125 mg IVP once Route: IVP; Site: right wrist; aa5 10:42 Follow up: Response: No adverse reaction kb3 08:38 Drug: Levalbuterol Inhalation 2.5 mg Inhalation once Route: Inhalation; aa5 10:41 Follow up: Response: No adverse reaction; Wheezing diminished kb3 08:38 Drug: Ipratropium Inhalation Aerosol 0.5 mg Inhalation once Route: Inhalation; aa5 10:41 Follow up: Response: No adverse reaction; Wheezing diminished kb3 08:38 Drug: Famotidine IVP 20 mg IVP once; dilute with 10 mL 0.9% NaCl; give over 2 minutes aa5 Route: IVP; Site: right wrist; 10:40 Follow up: Response: No adverse reaction; Pain is decreased kb3 Medication: 06:13 VIS not applicable for this client. al5 Intake: 07:24 IV: 100ml; Total: 100ml. ko1 15:46 IV: 2235ml; Total: 2335ml. jl7 Outcome: 07:40 Decision to Hospitalize by Provider. richelle 15:45 Admitted to Med/surg accompanied by nurse, via wheelchair, room 211, with chart, jl7 15:45 Condition: stable 15:45 Discharge instructions given to patient, Instructed on the need for admit, 16:37 Patient left the ED. ss Signatures: Dispatcher [facility] EDMS Chase Mcdaniels MD MD cha Calderon, Audri, RN RN aa5 Carolina Sanchez, RN RN ss Venkatesh Colon Jahala RN RN jl7 Milagro Harris, RN RN kb3 Elizabeth Irby, RN RN ko1 Hilario Merlos MD MD sp4 Nicol Javier RN RN al5 Natasha Boo RN RN br2 Corrections: (The following items were deleted from the chart) 07:03 06:54 Influenza Screen (A \T\ B)+BA.LAB.BRZ drawn and sent. oe EDMS 07:04 06:53 SARS-COV-2 Antigen Rapid+I.LAB.BRZ drawn and sent. oe EDMS
--- NOTE | 2024-05-16 07:49 | RAD REPORT ---
EXAM: CT brain without contrast HISTORY: CONFUSED COMPARISON: None TECHNIQUE: Multiple contiguous axial images were obtained and a CT of the brain without contrast. Sag ittal and coronal reformats were performed. One or more of the following dose reduction techniques were used: Automated exposure control, adjust ment of the mA and/or kV according to patient size, and/or iterative reconstruction. FINDINGS: No evidence of hydrocephalus, intracranial hemorrhage, or extra-axial fluid collection. Mild brain atrophy with mild periventricular and deep white matter chronic microvascular ischemic ch anges present. Gliosis is seen in the medial right occipital lobe. This is likely related to remote infarction. The calvarium is intact. The visualized paranasal sinuses and mastoid air cells are essentially clear . IMPRESSION: No evidence of acute intracranial abnormality. Remote infarct medial right occipital lobe.
--- NOTE | 2024-05-16 07:53 | RAD REPORT ---
EXAM: CT CHEST, ABDOMEN AND PELVIS WITH CONTRAST CLINICAL INDICATION: sepsis TECHNIQUE: CT chest, abdomen and pelvis was performed, following the administration of contrast, as p er department protocol. Axial, sagittal and coronal reconstructions were obtained. One or more of the following dose reduction techniques were used: Automated exposure control, adjustment of the mA a nd/or kV according to patient size, and/or iterative reconstruction. Unless otherwise specified, incidental findings do not require dedicated imaging follow-up. COMPARISON: No prior exam. FINDINGS: LUNGS: Moderate patchy opacities are present in both lung bases, greater on the left likely infiltrat e/pneumonia. 23 mm nodular lesion also present superior segment left lower lobe. PLEURA: No pleural effusion. No pneumothorax. MEDIASTINUM AND LYMPH NODES: Upper limit of normal lymphadenopathy seen in the mediastinum and hilar regions. OSSEOUS STRUCTURES AND CHEST WALL: Intact. LIVER: Normal in size and contour. No focal lesion or biliary dilatation. Grossly unremarkable gallbl adder. PANCREAS: No mass, ductal dilation, or benson-pancreatic fluid. SPLEEN: Normal size. No focal lesion. ADRENALS: Normal; no mass. KIDNEYS: Normal size and contour. No hydronephrosis. URINARY BLADDER: Normal contour. GASTROINTESTINAL TRACT: No bowel obstruction, free air, significant free fluid or abscess. There is mild diverticulosis coli of the sigmoid colon without diverticulitis. APPENDIX: Normal appendix. LYMPH NODES: No lymphadenopathy. MUSCULOSKELETAL: No acute or suspicious osseous abnormality. OTHER: Aortoiliac atherosclerosis. IMPRESSION: Patchy areas of infiltrate in both lung bases, greater on the left likely pneumonia. 23 mm nodule is present superior segment left lower lobe which could be neoplastic. Recommend nonemer gent PET/CT follow-up and/or pulmonology consultation.
--- NOTE | 2024-05-16 08:24 | RAD REPORT ---
EXAMINATION: ONE VIEW CHEST XR CLINICAL INDICATION: Cough;Dyspnea TECHNIQUE: Frontal chest projection is submitted. Examination is limited by patient positioning and t echnique. COMPARISON: 11/04/2019 FINDINGS: Bilateral interstitial patchy opacities greatest in the left lower lung suspicious for infection/pneu monia. The heart is upper limit of normal in size. No displaced fractures identified.
[2024-05-16] MEDS ORDERED: METHYLPREDNISOLONE 125 MG INJ ONE (08:28)
[2024-05-16] MEDS ORDERED: IPRATROPIUM BROM 0.5MG/2.5ML ONE (08:28)
[2024-05-16] MEDS ORDERED: LEVALBUTEROL 1.25 MG/3 ML NEB ONE (08:28)
[2024-05-16] MEDS ORDERED: FAMOTIDINE 20 MG/2 ML VIAL IV ONE (08:29)
[2024-05-16] MEDS ORDERED: ASPIRIN 81 MG CHEWABLE TABLET ONE (08:29)
[2024-05-16] MEDS ORDERED: ALBUTEROL 2.5 MG/3 ML NEB SOL NEB PRN (13:04)
[2024-05-16] MEDS ORDERED: ACETAMINOPHEN 500 MG TAB PO PRN (13:06)
[2024-05-16] MEDS: CARBIDOPA/LEVODOPA 25/100 TAB PO SCH (14:00)
[2024-05-16] MEDS: ENOXAPARIN 40 MG/0.4 ML SQ SCH (14:00)
[2024-05-16] MEDS: NICOTINE 7 MG/PAT TD SCH (14:00)
[2024-05-16] MEDS ORDERED: ENOXAPARIN 40 MG/0.4 ML SQ ONE (14:26)
--- NOTE | 2024-05-16 18:14 | P.HP ---
Patient History Date of Service: 05/16/24 History of Present Illness: 68-year-old male with a past medical history of hypertension, GERD, dementia coming from a nursing. States that he has been coughing in addition to having vomiting and diarrhea. He has not been able to hold any food or drink. Associated symptoms include low-grade fever he does smoke 1 pack/day. He has a history of basal cell carcinoma. Allergies Tetanus Vaccines and Toxoid Allergy (Verified 11/04/19 23:49) Itching/Hives/Rash Home Medications: Dextran 70/Hypromellose [Artificial Tears Drops] 1 drops OP BID 11/05/19 Folic Acid 1 mg PO DAILY 11/05/19 Melatonin 5 mg PO BEDTIME 11/05/19 Metoprolol Tartrate [Lopressor*] 25 mg PO BID 11/05/19 Nicotine [Nicotine Patch] 1 each TD DAILY 11/05/19 Pantoprazole [Protonix Tab*] 40 mg PO DAILY 11/05/19 Polymyxin B Sulf/Trimethoprim [Polymyxin B-Tmp Eye Drops] 1 gtt OP Q6HR 11/05/19 Potassium Chloride 20 meq PO DAILY 11/05/19 Thiamine HCl 100 mg PO DAILY 11/05/19 Carbidopa/Levodopa 25-100 [Sinemet 25-100*] 1 tab PO TID #90 tab 11/07/19 Cefdinir [Cefdinir*] 300 mg PO BID #20 cap 11/07/19 Donepezil HCl [Aricept] 5 mg PO BID #60 tablet 11/07/19 Ensure Enlive 237 ml PO BID #60 can 11/07/19 Alejandro [Alejandro*] 1 pkt PO BID #60 powd.pack 11/07/19 chlordiazePOXIDE HCl [Librium*] 5 mg PO Q8HP #20 cap 11/07/19 - Past Medical/Surgical History Has patient received pneumonia vaccine in the past: Yes Diabetic: No -: Hypertension -: Anxiety -: Hypokalemia-chronic -: Insomnia -: COPD -: Urinary tract infection -: Pneumonia -: Nicotine dependent -: Iron deficient -: Right eye conjunctivitis -: Muscle weakness Psychosocial/ Personal History: Resident of [facility] - Social History Smoking Status: Current every day smoker Alcohol use: No CD- Drugs: No Caffeine use: Yes Place of Residence: [facility] Review of Systems General: Fever Eyes: Unremarkable ENT: Unremarkable Respiratory: Cough Cardiovascular: Unremarkable Gastrointestinal: Diarrhea Genitourinary: Unremarkable Musculoskeletal: Unremarkable Integumentary: Unremarkable Neurological: Weakness Lymphatics: Unremarkable Physical Examination - Vital Signs Temperature: 97.9 F Blood Pressure: 138/78 Pulse: 56 Respirations: 16 Pulse Ox (%): 93 - Physical Exam General: Alert, Oriented x3 HEENT: Atraumatic Neck: Supple Respiratory: Clear to auscultation bilaterally Cardiovascular: No edema, Normal pulses Gastrointestinal: Normal bowel sounds Musculoskeletal: No clubbing Integumentary: No rashes Neurological: Normal gait - Studies Laboratory Data (last 24 hrs) 05/16/24 05/16/24 05/16/24 06:23 06:23 06:23 WBC 6.00 Hgb 13.0 L Hct 37.3 L Plt Count 230 PT 13.9 H INR 1.33 APTT 29.9 Sodium 135 L Potassium 3.6 BUN 26 H Creatinine 0.93 Glucose 117 H Total Bilirubin 0.9 AST 18 ALT 18 Alkaline Phosphatase 82 Assessment and Plan - Plan Pneumonia Hypertension Dementia Tobacco abuse History of COPD Nicotine dependence Insomnia Anxiety -Chest x-ray suggestive of pneumonia. Elevated BUN with age greater than 65. Meeting curb 65 -Continue antibiotics with Rocephin and Z-David -Sputum culture, blood culture, urinalysis been -Albuterol as needed -Continue carbidopa levodopa and donepezil -Regular diet DVT prophylaxis with SCDs - Advance Directives Does patient have a Living Will: Yes Does patient have a Durable POA for Healthcare: Yes
[2024-05-16] MEDS: CEFTRIAXONE 1,000 MG in NA CHLORIDE 0.9% 50 ML IVPB SCH (20:05)
[2024-05-16] MEDS: DONEPEZIL HCL 5 MG TAB PO SCH (20:08)
[2024-05-16] MEDS: MELATONIN 5 MG TABLET PO SCH (20:09)
[2024-05-16] MEDS ORDERED: DONEPEZIL HCL 5 MG TAB PO SCH (21:00)
[2024-05-16] MEDS: guaiFENesin 100 MG/5 ML UCUP PO PRN (22:06)
[2024-05-16] MEDS: ATORVASTATIN 40 MG TAB PO SCH (22:06)
[2024-05-16] MEDS: levETIRAcetam 500 MG TAB PO SCH (22:07)
[2024-05-16] MEDS: METOPROLOL TAR 25 MG TAB PO SCH (22:07)
[2024-05-16] MEDS: ASCORBIC ACID 500 MG TABLET PO SCH (22:07)
[2024-05-16] MEDS: DIVALPROEX DR 250 MG TAB PO SCH (22:07)
[2024-05-16] MEDS: TRAZODONE 50 MG TABLET PO SCH (22:08)
[2024-05-16] MEDS: MELATONIN 5 MG TABLET PO ONE (22:08)
[2024-05-16] MEDS: NICOTINE 21 MG/PAT TD SCH (22:16)
[2024-05-17] MEDS: ONDANSETRON 4 MG (ODT) TAB PO PRN (04:43)
[2024-05-17 05:03] LABS: Absolute Lymphocytes (CBC) 1.4 K/uL (0.7-4.9); Absolute Monocytes 0.8 K/uL (0.1-1.3); Absolute Neutrophil 6.6 K/uL (1.8-8.0); Basophils % 0.3 % (0-1.3); Hematocrit 35.7 % (39.6-49.0); Hemoglobin 12.5 g/dL (13.6-17.9); Lymphocytes % 15.9 % (15.3-44.8); MCH 31.8 pg (27.0-35.0); MCV 91.1 fL (80-100); MPV 8.5 fL (7.6-11.3); Monocytes % 9.4 % (3.3-12.3); Neutrophils % 74.4 % (41.7-73.7); Nucleated Red Blood Cells % 0.1 % (0-0); Platelets 195 thou/uL (152-406); RBC Red Blood Cell Count 3.92 M/uL (4.33-5.43); Red Cell Distribution Width 14.5 % (12.1-15.2)
[2024-05-17 05:14] LABS: Anion Gap 8.7 mEq/L (5.0-15.0); Potassium 3.7 mEq/L (3.5-5.1)
--- NOTE | 2024-05-17 06:26 | P.PN ---
Date of Service: 05/17/24 Subjective: Feeling better today. Remains on room air. He does endorse some mild wheezing. He states he was getting more breathing treatments at his last hospital. He is tolerating fluids and oral intake. He has not had a bowel movement yet. He is feeling stronger Review of Systems General: Fever Eyes: Unremarkable ENT: Unremarkable Respiratory: Cough Cardiovascular: Unremarkable Gastrointestinal: Diarrhea Genitourinary: Unremarkable Musculoskeletal: Unremarkable Integumentary: Unremarkable Neurological: Weakness Lymphatics: Unremarkable Physical Examination - Vital Signs Temperature: 97.9 F Blood Pressure: 138/78 Pulse: 56 Respirations: 16 Pulse Ox (%): 93 - Physical Exam General: Alert, Oriented x3 HEENT: Atraumatic, chronic lower lid eye droop Neck: Supple Respiratory: Bilateral wheezing, coarse breath Cardiovascular: No edema, Normal pulses Gastrointestinal: Normal bowel sounds Musculoskeletal: No clubbing, muscular atrophy Integumentary: No rashes Neurological: Normal gait - Studies Laboratory Data (last 24 hrs) 05/16/24 05/16/24 05/16/24 06:23 06:23 06:23 WBC 6.00 Hgb 13.0 L Hct 37.3 L Plt Count 230 PT 13.9 H INR 1.33 APTT 29.9 Sodium 135 L Potassium 3.6 BUN 26 H Creatinine 0.93 Glucose 117 H Total Bilirubin 0.9 AST 18 ALT 18 Alkaline Phosphatase 82 Assessment and Plan - Plan Pneumonia Hypertension Dementia Tobacco abuse COPD Nicotine dependence Insomnia Anxiety -On room air -Continue antibiotics with Rocephin and Z-David -Blood culture no growth today -Sputum culture pending -Nebulized Xopenex -Add nebulizer for troponin -Start prednisone oral 40 mg daily for 5 days -Continue carbidopa levodopa and donepezil -Regular diet DVT prophylaxis with SCDs - Advance Directives Does patient have a Living Will: Yes Does patient have a Durable POA for Healthcare: Yes
[2024-05-17] MEDS: IPRATROPIUM BROM 0.5MG/2.5ML NEB SCH (08:00)
[2024-05-17] MEDS: ALBUTEROL 2.5 MG/3 ML NEB SOL NEB SCH (08:00)
[2024-05-17] MEDS: AZITHROMYCIN IV 500 MG in NA CHLORIDE 0.9% 250 ML IVPB SCH (08:25)
[2024-05-17] MEDS: THIAMINE HCL 100 MG TABLET PO SCH (08:26)
[2024-05-17] MEDS: predniSONE 20 MG TAB PO SCH (08:26)
[2024-05-17 16:04] VITALS: BMI 22.2
[2024-05-17] MEDS: MELATONIN 5 MG TABLET PO PRN (23:37)
[2024-05-17] MEDS: TRAMADOL HCL 50 MG TAB PO PRN (23:37)
--- NOTE | 2024-05-18 07:54 | RAD REPORT ---
Procedure: Chest Single View HISTORY: Cough COMPARISON: April 20202024 FINDINGS: Improvement in the bibasilar lung opacities Medial left lower lobe nodule unchanged No significant pleural effusion noted. The heart is mildly enlarged. IMPRESSION: Partial resolution of the bibasilar lung opacities
[2024-05-18] MEDS ORDERED: HYDRALAZINE HCL 20 MG/ML VIAL IV PRN (08:41)
[2024-05-18] MEDS: AZITHROMYCIN 250 MG TAB PO SCH (08:55)
--- NOTE | 2024-05-18 12:59 | P.PN ---
Date of Service: 05/18/24 Subjective: Continues to improve. Discussed trying ambulatory O2 saturation. Remains on room air. He is tolerating fluids and oral intake. Mildly elevated blood pressures overnight. no fevers overnight. Review of Systems General: Unremarkable Eyes: Unremarkable ENT: Unremarkable Respiratory: Cough Cardiovascular: Unremarkable Gastrointestinal: Unremarkable Genitourinary: Unremarkable Musculoskeletal: Unremarkable Integumentary: Unremarkable Neurological: Weakness Lymphatics: Unremarkable Physical Examination - Vital Signs Temperature: 97.9 F Blood Pressure: 138/78 Pulse: 56 Respirations: 16 Pulse Ox (%): 93 - Physical Exam General: Alert, Oriented x3 HEENT: Atraumatic, chronic lower lid eye droop Neck: Supple Respiratory: Mild wheezing, Cardiovascular: No edema, Normal pulses Gastrointestinal: Normal bowel sounds Musculoskeletal: No clubbing, muscular atrophy Integumentary: No rashes Neurological: Normal gait - Studies Laboratory Data (last 24 hrs) 05/16/24 05/16/24 05/16/24 06:23 06:23 06:23 WBC 6.00 Hgb 13.0 L Hct 37.3 L Plt Count 230 PT 13.9 H INR 1.33 APTT 29.9 Sodium 135 L Potassium 3.6 BUN 26 H Creatinine 0.93 Glucose 117 H Total Bilirubin 0.9 AST 18 ALT 18 Alkaline Phosphatase 82 Assessment and Plan - Plan Pneumonia Hypertension Dementia Tobacco abuse COPD Nicotine dependence Insomnia Anxiety -Ambulatory home O2 test -Continue antibiotics with Rocephin switch to oral azithromycin -Blood culture no growth to date -Sputum culture pending -Nebulized Xopenex -Continue prednisone -Continue carbidopa levodopa and donepezil -Regular diet DVT prophylaxis with SCDs - Advance Directives Does patient have a Living Will: Yes Does patient have a Durable POA for Healthcare: Yes
--- NOTE | 2024-05-19 09:35 | P.DS ---
Admission Date: 05/16/24 Discharge Date: 05/19/24 Disposition: ROUTINE DISCHARGE Discharge Condition: GOOD Brief History of Present Illness: 68-year-old male with a past medical history of hypertension, GERD, dementia coming from a nursing. States that he has been coughing in addition to having vomiting and diarrhea. He has not been able to hold any food or drink. Associated symptoms include low-grade fever he does smoke 1 pack/day. He has a history of basal cell carcinoma. Hospital Course: 68-year-old male with a past medical history of hypertension, GERD, dementia presented with coughing and mild secondary to pneumonia. Upon admission he was started on antibiotic and breathing treatment. His condition improved during the course of his stay. Cultures did not grow anything. The remainder of his medical problems were chronic and stable. He has been transitioned over to oral antibiotic in addition to inhalers for discharge. He has been counseled on avoiding allergen. The remainder of his stay has been uncomplicated and he is medically optimized for discharge Vital Signs/Physical Exam: Temp Pulse Resp BP Pulse Ox 97.7 F 79 16 143/76 H 91 05/19/24 08:00 05/19/24 08:00 05/19/24 08:00 05/19/24 08:00 05/19/24 08:00 General: Alert, In no apparent distress HEENT: Atraumatic, Normocephalic Neck: Supple, 2+ carotid pulse no bruit Respiratory: Clear to auscultation bilaterally Capillary refill: <2 Seconds Gastrointestinal: Normal bowel sounds Musculoskeletal: No clubbing Integumentary: No rashes Neurological: Normal gait, Normal speech Lymphatics: No axilla or inguinal lymphadenopathy Laboratory Data at Discharge: WBC 8.90 thou/uL (4.3-10.9) 05/17/24 04:35 Hgb 12.5 g/dL (13.6-17.9) L 05/17/24 04:35 Hct 35.7 % (39.6-49.0) L 05/17/24 04:35 Plt Count 195 thou/uL (152-406) 05/17/24 04:35 PT 13.9 SECONDS (9.4-12.5) H 05/16/24 06:23 INR 1.33 05/16/24 06:23 APTT 29.9 SECONDS (24.3-36.9) 05/16/24 06:23 Sodium 138 mEq/L (136-145) 05/17/24 04:35 Potassium 3.7 mEq/L (3.5-5.1) 05/17/24 04:35 BUN 19 mg/dL (7-18) H 05/17/24 04:35 Creatinine 0.55 mg/dL (0.70-1.30) L 05/17/24 04:35 Glucose 125 mg/dL (74-106) H 05/17/24 04:35 Total Bilirubin 0.9 mg/dL (0.2-1.0) 05/16/24 06:23 AST 18 U/L (15-37) 05/16/24 06:23 ALT 18 U/L (16-61) 05/16/24 06:23 Alkaline Phosphatase 82 U/L (45-117) 05/16/24 06:23 Triglycerides 92 mg/dL (<150) 05/17/24 04:35 Cholesterol 116 mg/dL (<200) 05/17/24 04:35 HDL Cholesterol 34 mg/dL (40-60) L 05/17/24 04:35 Cholesterol/HDL Ratio 3.41 05/17/24 04:35 Home Medications: Acetaminophen [Tylenol] 650 mg PO Q4H PRN 05/17/24 Ascorbic Acid [Vitamin C] 500 mg PO BID 05/17/24 Atorvastatin Calcium 40 mg PO BEDTIME 05/17/24 Clopidogrel Bisulfate [Clopidogrel] 75 mg PO DAILY 05/17/24 Dextran 70/Hypromellose [Artificial Tears Drops] 2 gtt OPTH BID 05/17/24 Divalproex Sodium 250 mg PO BID 05/17/24 Docusate Sodium 100 mg PO BID 05/17/24 Fluticasone/Umeclidin/Vilanter [Trelegy Ellipta 100-62.5-25] 1 puff IH DAILY 05/17/24 Folic Acid [Folic Acid*] 1 mg PO DAILY 05/17/24 Guaifenesin [Cough Syrup] 10 ml PO Q4H PRN 05/17/24 Melatonin 10 mg PO BEDTIME 05/17/24 Memantine HCl 10 mg PO BEDTIME 05/17/24 Menthol [Biofreeze] 1 appl TOP BID 05/17/24 Metoprolol Tartrate 25 mg PO BID 05/17/24 Multivitamin 1 tab PO DAILY 05/17/24 Polyethylene Glycol 3350 [Miralax] 17 gm PO Q48H 05/17/24 Sennosides 2 tab PO BEDTIME 05/17/24 Tamsulosin [Flomax*] 0.4 mg PO DAILY 05/17/24 Tramadol HCl [Ultram] 50 mg PO Q8H PRN 05/17/24 Trazodone HCl 50 mg PO BEDTIME 05/17/24 levETIRAcetam [Keppra] 500 mg PO BID 05/17/24 Albuterol Sulfate [Proair Hfa] 8.5 gm IH DAILY #1 NS 05/19/24 Amlodipine [Norvasc*] 5 mg PO DAILY #30 tab 05/19/24 Azithromycin Tab [Zithromax*] 250 mg PO DAILY #3 tab 05/19/24 Cefdinir [Omnicef] 300 mg PO DAILY 5 Days #5 tab 05/19/24 Prednisolone Sod Phosphate [Orapred Odt] 30 mg PO DAILY 4 Days #4 05/19/24 New Medications: Amlodipine [Norvasc*] 5 mg PO DAILY #30 tab Cefdinir [Omnicef] 300 mg PO DAILY 5 Days #5 tab Prednisolone Sod Phosphate [Orapred Odt] 30 mg PO DAILY 4 Days #4 Albuterol Sulfate [Proair Hfa] 8.5 gm IH DAILY #1 NS Azithromycin Tab [Zithromax*] 250 mg PO DAILY #3 tab Diet: Regular Activity: Ad kavon Followup: SHARONDA MCDONOUGH [Primary Care Provider] -
[2024-05-19] MEDS: AMLODIPINE 5 MG TAB PO SCH (09:48)
[2024-05-19 12:11] VITALS: BP 140/71; TEMP 98.5
--- NOTE | 2024-05-19 12:14 | EKG ---
Test Date: 2024-05-16 Test Time: 07:07:38 Legal Process Specialist: KALI MEASUREMENT RESULTS: Intervals: Rate: 80 DE: 188 QRSD: 82 QT: 346 QTc: 399 [place]: P: 73 DE: 188 QRS: 74 T: 190 INTERPRETIVE STATEMENTS: Normal sinus rhythm Marked ST abnormality, possible inferolateral subendocardial injury Abnormal ECG Compared to ECG 11/04/2019 19:39:58 Sinus tachycardia no longer present Ventricular premature complex(es) no longer present Myocardial infarct finding no longer present Possible ischemia no longer present ST (T wave) deviation still present Electronically Signed On 05-19-24 12:11:14 [employer] by Raymond Mejia
[2024-05-19 17:34] VITALS: O2SAT 91
== END 2024-05-19 17:00 | DRG 179 ==
LOC: ER 06:01 → ERHOLD 13:15 → 2ND 15:50
PROVIDERS: ADMIT Family Medicine; ATTEND Family Medicine
DX: J15.8 Pneumonia due to other specified bacteria (principal); I10 Essential (primary) hypertension; F03.90 Unspecified dementia, unspecified severity, without behavioral disturbance, psychotic disturbance, mood disturbance, and anxiety; R50.9 Fever, unspecified; J44.9 Chronic obstructive pulmonary disease, unspecified; G47.00 Insomnia, unspecified; F41.9 Anxiety disorder, unspecified; K21.9 Gastro-esophageal reflux disease without esophagitis; R19.7 Diarrhea, unspecified; R11.10 Vomiting, unspecified; C44.91 Basal cell carcinoma of skin, unspecified; R53.1 Weakness; E87.6 Hypokalemia; M62.50 Muscle wasting and atrophy, not elsewhere classified, unspecified site; E61.1 Iron deficiency; H02.409 Unspecified ptosis of unspecified eyelid; Z11.52 Encounter for screening for COVID-19; F17.210 Nicotine dependence, cigarettes, uncomplicated; Z71.6 Tobacco abuse counseling; Z79.899 Other long term (current) drug therapy; Z88.7 Allergy status to serum and vaccine
CPT/HCPCS: 36415; 70450; 71045; 71260; 74177; 80048; 80053; 80061; 83605; 83880; 84145; 84439; 84443; 84484; 85025; 85610; 85730; 86140; 87040; 87428; 93005; 94010; 94760; 99285; J0692; J0696; J1650; J2405; J2919; J7030; J7040; J7050; J7512; J7613; J7614; J7644; Q0162; Q9967